=== PATIENT | male | born 1960 | race Caucasian/White ===

== ENCOUNTER 2018-03-26 17:36 | Emergency (ER) | payer BC ==
[2018-03-26] MEDS ORDERED: DILTIAZEM DRIP BOLUS FROM BAG 1 MG SOLN IV ONE (17:56)
[2018-03-26] MEDS ORDERED: SODIUM CHLORIDE 0.9% 1,000 ML IV STA ×2 (17:56)
[2018-03-26] MEDS ORDERED: DILTIAZEM 50 MG in SODIUM CHLORIDE 0.9% 40 ML IV STA (17:56)
--- NOTE | 2018-03-26 17:59 | ED ---
Arrhythmia/Palpitations HPI - General Chief Complaint: Arrhythmia/Palpitations Stated Complaint: Chest Pain Time Seen by Provider: 03/26/18 17:45 Source: patient, family Mode of arrival: ambulatory Limitations: no limitations - History of Present Illness Initial Comments: Patient is a 57-year-old male presenting for palpitations. The patient states that approximately one hour presentation, he started having palpitations. He did not have any chest pain or shortness of breath but admitted to some congestion. He states that he was diagnosed with atrial fibrillation about a year ago and it was secondary to low magnesium. At that point, he was put on sotalol and is having increase in the dosage. He also has been taking sotalol but has not had any complications with it. He denies any shortness of breath or abdominal pain or nausea/vomiting/diarrhea. - Related Data Allergies Allergy/AdvReac Type Severity Reaction Status Date / Time Iodinated Contrast- Oral and Allergy Rash/Hives Verified 03/26/18 20:13 IV Dye Review of Systems ROS Statement: Those systems with pertinent positive or pertinent negative responses have been documented in the HPI. Constitutional: Negative for chills, fatigue and fever. HENT: Negative for congestion. Respiratory: Negative for chest tightness, shortness of breath and wheezing. Negative for cough Cardiovascular: Negative for chest pain and positive for palpitations. Gastrointestinal: Negative for abdominal pain. Negative for abdominal distention , diarrhea, nausea and vomiting. Positive for bright red blood per rectum Genitourinary: Negative for dysuria. Musculoskeletal: Negative for back pain, neck pain and neck stiffness. Skin: Negative for color change. Neurological: Negative for dizziness, speech difficulty, weakness and light- headedness. Psychiatric/Behavioral: Negative for agitation and confusion. Negative for anxiety ROS Other: All systems not noted in ROS Statement are negative. Past Medical History Past Medical History: Atrial Fibrillation, Diabetes Mellitus, Hyperlipidemia, Hypertension, Myocardial Infarction ([place]) History of Any Multi-Drug Resistant Organisms: None Reported Past Surgical History: Heart Catheterization With Stent, Hernia Repair, Joint Replacement Past Psychological History: No Psychological Hx Reported Smoking Status: Never smoker Past Alcohol Use History: None Reported Past Drug Use History: None Reported General Exam - General Exam Comments Initial Comments: Constitutional: Pt is oriented to person, place, and time. Pt appears well- developed and well-nourished. No distress. HENT: Head: Normocephalic and atraumatic. Eyes: EOM are normal. Neck: Normal range of motion. Neck supple. Cardiovascular: Irregularly irregular rhythm, tachycardia present, S1 normal, S2 normal and normal heart sounds. Exam reveals no gallop and no friction rub. No murmur heard. Pulmonary/Chest: Effort normal and breath sounds normal. No tachypnea and no bradypnea. No respiratory distress. No wheezes or rales noted. Abdominal: Soft. Bowel sounds are normal. Pt exhibits no shifting dullness, no distension, no pulsatile liver, no fluid wave, no abdominal bruit and no ascites. There is no tenderness. There is no rigidity, no rebound, no guarding, no tenderness at McBurney's point and negative Storey's sign. Musculoskeletal: Normal range of motion. Neurological: Pt is alert and oriented to person, place, and time. No cranial nerve deficit. Skin: Skin is warm and dry. No rash noted. Pt is not diaphoretic. No erythema. No pallor. Psychiatric: Pt has a normal mood and affect. Pt behavior is normal. Thought content normal. Limitations: no limitations Course Vital Signs 03/26/18 03/26/18 03/26/18 17:38 18:20 18:25 Temperature 98.6 F Pulse Rate 156 H 88 Respiratory 18 18 Rate Blood Pressure 143/92 105/83 105/83 O2 Sat by Pulse 97 96 Oximetry 03/26/18 03/26/18 03/26/18 18:30 18:35 18:40 Temperature Pulse Rate 95 80 Respiratory 21 20 Rate Blood Pressure 105/83 125/76 125/76 O2 Sat by Pulse 96 96 Oximetry 03/26/18 03/26/18 03/26/18 18:45 18:50 18:55 Temperature Pulse Rate 85 80 87 Respiratory 19 9 L 18 Rate Blood Pressure 125/76 125/76 125/76 O2 Sat by Pulse 96 97 96 Oximetry 03/26/18 19:30 Temperature 98.1 F Pulse Rate 73 Respiratory 14 Rate Blood Pressure 126/73 O2 Sat by Pulse 96 Oximetry EKG Findings - EKG Comments: EKG Findings:: EKG shows atrial fibrillation fibrillation with RVR. QRS 86, QTC 469, there are no significant ST depressions or elevations. 19:19 - EKG shows normal sinus rhythm with a rate of 83 piece per minute, MD interval 168, QRS 90, QTC 444. R no significant ST depressions or elevations. Medical Decision Making - Medical Decision Making Lavatory studies showed that there was no significant nausea light derangements nor was there leukocytosis. Chest x-ray was also negative for emergent pathology. Upon arrival, the patient was in atrial fibrillation with RVR but then converted spontaneously to normal sinus rhythm and medications were not needed. Case is discussed with cardiology on-call and it was advised that he could be discharged with follow-up as an outpatient. Because the patient was hemodynamically stable and continued to remain in normal sinus rhythm per telemetry, it was thought that the patient can be safely discharged. Additionally, from a cardiac standpoint, troponin was not elevated.Explained all labs and diagnostic test results and that we will discharge the patient home and patient is to follow up with PCP in 1-2 days and return to the ED if symptoms worsen. Pt is agreeable to plan. - Lab Data Result diagrams: 03/26/18 17:54 03/26/18 17:54 Lab Results 03/26/18 03/26/18 03/26/18 Range/Units 17:54 17:54 17:54 WBC 9.4 (3.8-10.6) k/uL RBC 4.93 (4.30-5.90) m/uL Hgb 14.6 (13.0-17.5) gm/dL Hct 44.3 (39.0-53.0) % MCV 89.8 (80.0-100.0) fL MCH 29.6 (25.0-35.0) pg MCHC 33.0 (31.0-37.0) g/dL RDW 13.3 (11.5-15.5) % Plt Count 187 (150-450) k/uL Neutrophils % 72 % Lymphocytes % 15 % Monocytes % 10 % Eosinophils % 1 % Basophils % 0 % Neutrophils # 6.7 (1.3-7.7) k/uL Lymphocytes # 1.4 (1.0-4.8) k/uL Monocytes # 0.9 (0-1.0) k/uL Eosinophils # 0.1 (0-0.7) k/uL Basophils # 0.0 (0-0.2) k/uL PT 12.1 H (9.0-12.0) sec INR 1.2 H (<1.2) APTT 26.2 (22.0-30.0) sec Sodium 140 (137-145) mmol/L Potassium 4.3 (3.5-5.1) mmol/L Chloride 106 (98-107) mmol/L Carbon Dioxide 25 (22-30) mmol/L Anion Gap 9 mmol/L BUN 16 (9-20) mg/dL Creatinine 0.66 (0.66-1.25) mg/dL Est GFR (CKD-EPI)AfAm >90 (>60 ml/min/1.73 sqM) Est GFR (CKD-EPI)NonAf >90 (>60 ml/min/1.73 sqM) Glucose 262 H (74-99) mg/dL Calcium 9.9 (8.4-10.2) mg/dL Magnesium 1.7 (1.6-2.3) mg/dL Total Bilirubin 0.9 (0.2-1.3) mg/dL AST 30 (17-59) U/L ALT 36 (21-72) U/L Alkaline Phosphatase 42 (38-126) U/L Troponin I (0.000-0.034) ng/mL Total Protein 7.6 (6.3-8.2) g/dL Albumin 4.4 (3.5-5.0) g/dL TSH 0.949 (0.465-4.680) mIU/L 03/26/18 Range/Units 17:54 WBC (3.8-10.6) k/uL RBC (4.30-5.90) m/uL Hgb (13.0-17.5) gm/dL Hct (39.0-53.0) % MCV (80.0-100.0) fL MCH (25.0-35.0) pg MCHC (31.0-37.0) g/dL RDW (11.5-15.5) % Plt Count (150-450) k/uL Neutrophils % % Lymphocytes % % Monocytes % % Eosinophils % % Basophils % % Neutrophils # (1.3-7.7) k/uL Lymphocytes # (1.0-4.8) k/uL Monocytes # (0-1.0) k/uL Eosinophils # (0-0.7) k/uL Basophils # (0-0.2) k/uL PT (9.0-12.0) sec INR (<1.2) APTT (22.0-30.0) sec Sodium (137-145) mmol/L Potassium (3.5-5.1) mmol/L Chloride (98-107) mmol/L Carbon Dioxide (22-30) mmol/L Anion Gap mmol/L BUN (9-20) mg/dL Creatinine (0.66-1.25) mg/dL Est GFR (CKD-EPI)AfAm (>60 ml/min/1.73 sqM) Est GFR (CKD-EPI)NonAf (>60 ml/min/1.73 sqM) Glucose (74-99) mg/dL Calcium (8.4-10.2) mg/dL Magnesium (1.6-2.3) mg/dL Total Bilirubin (0.2-1.3) mg/dL AST (17-59) U/L ALT (21-72) U/L Alkaline Phosphatase (38-126) U/L Troponin I <0.012 (0.000-0.034) ng/mL Total Protein (6.3-8.2) g/dL Albumin (3.5-5.0) g/dL TSH (0.465-4.680) mIU/L Disposition Clinical Impression: Atrial fibrillation Disposition: HOME SELF-CARE Condition: Good Instructions: Heart Palpitations (ED) Is patient prescribed a controlled substance at d/c from ED?: No Referrals: Daniel Monae DO [Primary Care Provider] - 1-2 days Mora Davis MD [STAFF PHYSICIAN] - 1-2 days Time of Disposition: 19:57
[2018-03-26 18:14] LABS: Basophils % (A) 0 %; Eosinophils # (A) 0.1 k/uL (0-0.7); Eosinophils % (A) 1 %; HCT 44.3 % (39.0-53.0); HGB 14.6 gm/dL (13.0-17.5); Lymphocytes # (A) 1.4 k/uL (1.0-4.8); Lymphocytes % (A) 15 %; MCH 29.6 pg (25.0-35.0); MCV 89.8 fL (80.0-100.0); Mean Platelet Volume 8.1; Monocytes # (A) 0.9 k/uL (0-1.0); Monocytes % (A) 10 %; Neutrophils # (A) 6.7 k/uL (1.3-7.7); Neutrophils % (A) 72 %; Platelet Count 187 k/uL (150-450); RBC 4.93 m/uL (4.30-5.90); RDW 13.3 % (11.5-15.5); WBC 9.4 k/uL (3.8-10.6)
[2018-03-26 18:22] LABS: INR 1.2 (<1.2); Partial Thromboplastin Time 26.2 sec (22.0-30.0); Prothrombin Time 12.1 sec (9.0-12.0)
[2018-03-26 18:30] LABS: ALT 36 U/L (21-72); AST 30 U/L (17-59); Albumin 4.4 g/dL (3.5-5.0); Alkaline Phosphatase 42 U/L (38-126); Anion Gap 9 mmol/L; Blood Urea Nitrogen 16 mg/dL (9-20); Calcium 9.9 mg/dL (8.4-10.2); Carbon Dioxide 25 mmol/L (22-30); Chloride 106 mmol/L (98-107); Glucose 262 mg/dL (74-99); Magnesium 1.7 mg/dL (1.6-2.3); Potassium 4.3 mmol/L (3.5-5.1); Sodium 140 mmol/L (137-145); Total Bilirubin 0.9 mg/dL (0.2-1.3); Total Protein 7.6 g/dL (6.3-8.2)
--- NOTE | 2018-03-26 18:47 | XR ---
EXAMINATION TYPE: XR chest 2V DATE OF EXAM: 03/26/2018 COMPARISON: NONE HISTORY: Neck pain and jaw pain TECHNIQUE: Frontal and lateral views of the chest are obtained. FINDINGS: There is no focal air space opacity, pleural effusion, or pneumothorax seen. The cardiac silhouette size is within normal limits. The osseous structures are intact. IMPRESSION: No acute cardiopulmonary process.
[2018-03-26 19:56] VITALS: BP 126/73; PULSE 73; RESP 14; TEMP 98.1
== END 2018-03-26 20:02 | disposition home or self-care (01) ==
LOC: EC 17:36
DX: I48.91 Unspecified atrial fibrillation (principal); R09.89 Other specified symptoms and signs involving the circulatory and respiratory systems; R00.0 Tachycardia, unspecified; I25.2 Old myocardial infarction; Z91.041 Radiographic dye allergy status; Z95.5 Presence of coronary angioplasty implant and graft; Z79.899 Other long term (current) drug therapy
CPT/HCPCS: 36415; 71046; 80053; 83735; 84443; 84484; 85025; 85610; 85730; 93005; 96360; 96361; 99285

== ENCOUNTER 2018-07-04 12:21 | Inpatient (IN) | payer BC ==
[2018-07-04] MEDS ORDERED: LIDOCAINE 1% INJ 10MG/ML (20 ML MDV) SQ ONE (13:13)
--- NOTE | 2018-07-04 14:23 | ED ---
General Adult HPI - General Chief complaint: Skin/Abscess/Foreign Body Stated complaint: abscess on back Time Seen by Provider: 07/04/18 12:44 Source: patient Mode of arrival: ambulatory Limitations: no limitations - History of Present Illness Initial comments: Patient is a 57-year-old male presenting to the emergency department with an abscess on his right lower back. Patient states that he had it drained 4 years ago but the cyst remained until it flared up 3 days ago. He was placed on Bactrim by his primary care 3 days ago but has seen minimal improvement. Patient states the lesion has increased in size and now experiences referred flank pain. Patient denies fever, nausea vomiting or diarrhea. Patient reports exudate stains on his clothing but no discharge when squeezing it. Patient reports taking Tylenol for pain. - Related Data Home Medications Medication Instructions Recorded Confirmed Aspirin EC [Ecotrin Low Dose] 81 mg PO DAILY 03/26/18 07/04/18 Atorvastatin [Lipitor] 40 mg PO DAILY 03/26/18 07/04/18 Cholecalciferol [Vitamin D3] 5,000 unit PO BID 03/26/18 07/04/18 INSULIN LISPRO (HumaLOG) [HumaLOG] 10 units SQ AC-TID 03/26/18 07/04/18 Insulin Glargine,Hum.rec.anlog 10 units SQ DAILY 03/26/18 07/04/18 [[place] Solostar] Insulin Glargine,Hum.rec.anlog 20 units SQ HS 03/26/18 07/04/18 [[place] Solostar] Liraglutide [Victoza 2-Derrick] 1.2 mg SQ DAILY 03/26/18 07/04/18 Lisinopril [Zestril] 5 mg PO DAILY 03/26/18 07/04/18 [place]-3 Fatty Acids [[place]-3] 1,000 mg PO DAILY 03/26/18 07/04/18 Rivaroxaban [Xarelto] 20 mg PO DAILY 03/26/18 07/04/18 Sotalol [Betapace] 120 mg PO BID 03/26/18 07/04/18 metFORMIN HCL [Glucophage] 1,000 mg PO BID 03/26/18 07/04/18 Potassium Chloride ER [K-Dur 10] 10 meq PO DAILY 07/04/18 07/04/18 Sulfamethox-Tmp 800-160Mg [Bactrim 1 tab PO Q12HR 07/04/18 07/04/18 DS 800-160 mg] Tiotropium 18 Mcg/Puff [Spiriva] 1 puff INHALATION RT-DAILY 07/04/18 07/04/18 Allergies Allergy/AdvReac Type Severity Reaction Status Date / Time Iodinated Contrast- Oral and Allergy Rash/Hives Verified 07/04/18 13:13 IV Dye Review of Systems ROS Statement: Those systems with pertinent positive or pertinent negative responses have been documented in the HPI. ROS Other: All systems not noted in ROS Statement are negative. Past Medical History Past Medical History: Atrial Fibrillation, Coronary Artery Disease (CAD), Diabetes Mellitus, Hyperlipidemia, Hypertension, Myocardial Infarction ([place]) History of Any Multi-Drug Resistant Organisms: None Reported Past Surgical History: Heart Catheterization With Stent, Hernia Repair, Joint Replacement Past Psychological History: No Psychological Hx Reported Smoking Status: Never smoker Past Alcohol Use History: None Reported Past Drug Use History: None Reported General Exam Limitations: no limitations General appearance: alert, in no apparent distress Head exam: Present: atraumatic GI/Abdominal exam: Present: soft. Absent: distended Back exam: Present: full ROM, rash noted (Abscess of right lower back). Absent: CVA tenderness (R), CVA tenderness (L), muscle spasm Neurological exam: Present: alert, oriented X3 Psychiatric exam: Present: normal affect, normal mood Skin exam: Present: warm Expanded Type of lesion: Present: abscess (Right lower back. 6 cm diameter of induration. 3 cm diameter fluctuation) Distribution of rash: back (Right lower back) Description of rash: Present: size (6 cm diameter of induration and 3 cm diameter of fluctuation), tenderness, erythematous, swelling, fluctuant, indurated Course Vital Signs 07/04/18 12:39 Temperature 98.7 F Pulse Rate 86 Respiratory 18 Rate Blood Pressure 122/75 O2 Sat by Pulse 97 Oximetry Medical Decision Making - Medical Decision Making Patient is a 57-year-old diabetic presents to the emergency department for an abscess in the right lower back. The 5 mm incision was made in an attempt to drain exudates. No exudates were removed. An 18-gauge needle was inserted an attempt to draw any fluid out but none was removed. Patient had a CT without contrast on the site of the abscess. CBC, CMP and lactate were ordered. Patient was administered 1 dose of Rocephin and was placed in an ankle drip. Gen. surgery was consulted. The patient will be admitted today. Case discussed with physician. - Lab Data Result diagrams: 07/04/18 16:39 07/04/18 16:39 Lab Results 07/04/18 07/04/18 Range/Units 16:39 16:39 WBC 12.8 H (3.8-10.6) k/uL RBC 4.62 (4.30-5.90) m/uL Hgb 13.7 (13.0-17.5) gm/dL Hct 41.1 (39.0-53.0) % MCV 89.1 (80.0-100.0) fL MCH 29.8 (25.0-35.0) pg MCHC 33.4 (31.0-37.0) g/dL RDW 13.7 (11.5-15.5) % Plt Count 206 (150-450) k/uL Neutrophils % 80 % Lymphocytes % 9 % Monocytes % 8 % Eosinophils % 2 % Basophils % 0 % Neutrophils # 10.3 H (1.3-7.7) k/uL Lymphocytes # 1.1 (1.0-4.8) k/uL Monocytes # 1.1 H (0-1.0) k/uL Eosinophils # 0.2 (0-0.7) k/uL Basophils # 0.0 (0-0.2) k/uL Poikilocytosis Slight Sodium 138 (137-145) mmol/L Potassium 4.1 (3.5-5.1) mmol/L Chloride 104 (98-107) mmol/L Carbon Dioxide 23 (22-30) mmol/L Anion Gap 11 mmol/L BUN 12 (9-20) mg/dL Creatinine 0.60 L (0.66-1.25) mg/dL Est GFR (CKD-EPI)AfAm >90 (>60 ml/min/1.73 sqM) Est GFR (CKD-EPI)NonAf >90 (>60 ml/min/1.73 sqM) Glucose 218 H (74-99) mg/dL Calcium 9.5 (8.4-10.2) mg/dL Total Bilirubin 0.6 (0.2-1.3) mg/dL AST 13 L (17-59) U/L ALT 21 (21-72) U/L Alkaline Phosphatase 51 (38-126) U/L Total Protein 6.8 (6.3-8.2) g/dL Albumin 4.0 (3.5-5.0) g/dL Disposition Clinical Impression: Abscess Disposition: ADMITTED IP TO THIS [facility] Condition: Stable Referrals: Nonstaff,Physician [REFERRING] - 1-2 days Time of Disposition: 17:08 Decision Time: 17:08
[2018-07-04] MEDS ORDERED: cefTRIAXone IN SWFI 1,000 MG/10 ML SYRINGE IVP STA (16:03)
--- NOTE | 2018-07-04 16:37 | CT ---
EXAMINATION TYPE: CT abdomen wo con DATE OF EXAM: 07/04/2018 COMPARISON: None HISTORY: Right mid back swelling and redness. Abscess. CT DLP: 1280 mGycm Automated exposure control for dose reduction was used. TECHNIQUE: Helical acquisition of images was performed from the lung bases through the top of iliac crest to include entire abdomen. CONTRAST: Performed without Oral Contrast and without IV contrast. FINDINGS: LUNG BASES: Right hemidiaphragm elevation is seen. Slight rightward mediastinal shift may be secondar y to atelectasis as there is right basilar atelectasis noted. Right basilar granuloma is present. Lef t basilar airspace disease is partially visualized and may represent atelectasis. LIVER/GB: Diastases recti creates contra abnormality of the liver with focal outpouching anteriorly. Unenhanced liver demonstrates no appreciable mass. No cholelithiasis. PANCREAS: No significant abnormality is seen. SPLEEN: Benign parenchymal granulomas are scattered throughout. ADRENALS: No significant abnormality is seen. KIDNEYS: Minimal nonspecific perinephric fat stranding is seen. No hydronephrosis nor nephrolithiasis . BOWEL: Moderate degree fecal stasis. No dilated large or small bowel. LYMPH NODES: No greater than 1 cm short axis lymph node in the abdomen. OSSEOUS STRUCTURES: Mild degenerative change of the spine. FREE AIR: No free air is visualized. OTHER: There is a subcutaneous abscess seen at the level of T11-T12 measuring 5.3 x 4.5 x 6.2 cm in t ransverse by anterior posterior by craniocaudal dimension. This contains foci of loculated air, a thi n rim, and demonstrates surrounding fat stranding. Subcutaneous emphysema is also seen deep to the sk in surface along the right posterior superficial subcutaneous tissues. The skin demonstrates skin thi ckening overlying the site during 4 mm. This abscess is just deep to the skin surface. Phlegmonous ch anges about the T12 spinous process however this does not appear to currently invade the paraspinal m usculature. IMPRESSION: 1. RIGHT PARACENTRAL SUBCUTANEOUS ABSCESS AT T11-T12 MEASURING 5.3 X 4.5 X 6.2 CM SEEN JUST DEEP TO T HE THICKENED SKIN SURFACE ABUTTING THE TRANSVERSE PROCESS OF T12 WITHOUT APPARENT INVASION INTO THE P ARASPINAL MUSCLES AT THIS TIME NOR CURRENT OSSEOUS EROSION. 2. BIBASILAR AIRSPACE DISEASE FAVORED TO REPRESENT ATELECTASIS ALTHOUGH DEVELOPING PNEUMONIA IS POSSI BLE IN THE APPROPRIATE CLINICAL SETTING.
[2018-07-04 16:51] LABS: Basophils % (A) 0 %; Eosinophils # (A) 0.2 k/uL (0-0.7); Eosinophils % (A) 2 %; HCT 41.1 % (39.0-53.0); HGB 13.7 gm/dL (13.0-17.5); Lymphocytes # (A) 1.1 k/uL (1.0-4.8); Lymphocytes % (A) 9 %; MCH 29.8 pg (25.0-35.0); MCHC 33.4 g/dL (31.0-37.0); MCV 89.1 fL (80.0-100.0); Mean Platelet Volume 8.5; Monocytes # (A) 1.1 k/uL (0-1.0); Monocytes % (A) 8 %; Neutrophils # (A) 10.3 k/uL (1.3-7.7); Neutrophils % (A) 80 %; Platelet Count 206 k/uL (150-450); Poikilocytosis Slight; RBC 4.62 m/uL (4.30-5.90); RDW 13.7 % (11.5-15.5); WBC 12.8 k/uL (3.8-10.6)
[2018-07-04] MEDS ORDERED: ONDANSETRON 4 MG/2 ML VIAL IVP PRN (16:57)
[2018-07-04] MEDS ORDERED: ONDANSETRON 4 MG/2 ML VIAL IVP STA (16:57)
[2018-07-04] MEDS ORDERED: NALOXONE 0.4 MG/ML 1 ML VIAL IV PRN (16:57)
[2018-07-04] MEDS ORDERED: VANCOMYCIN IV PER PHARMACY 1 EACH MISC MISCELLANE PRN (16:57)
[2018-07-04 17:01] LABS: ALT 21 U/L (21-72); AST 13 U/L (17-59); Alkaline Phosphatase 51 U/L (38-126); Anion Gap 11 mmol/L; Blood Urea Nitrogen 12 mg/dL (9-20); Calcium 9.5 mg/dL (8.4-10.2); Carbon Dioxide 23 mmol/L (22-30); Chloride 104 mmol/L (98-107); Glucose 218 mg/dL (74-99); Potassium 4.1 mmol/L (3.5-5.1); Sodium 138 mmol/L (137-145); Total Bilirubin 0.6 mg/dL (0.2-1.3); Total Protein 6.8 g/dL (6.3-8.2)
[2018-07-04] MEDS ORDERED: VANCOMYCIN 2,000 MG in SODIUM CHLORIDE 0.9% 500 ML 500 ML IVPB STA (17:01)
[2018-07-04 18:23] LABS: Glucose,Whole Blood 194 mg/dL (75-99)
[2018-07-04] MEDS: HYDROcodone/APAP 5-325MG 1 EACH TAB PO PRN ×2 (18:25→23:46)
[2018-07-04 19:05] VITALS: BMI 40.4
--- NOTE | 2018-07-04 19:52 | P.HPIM ---
History of Present Illness H&P Date: 07/04/18 Chief Complaint: infected abscess not getting better The patient is a 57-year-old obese male with a past medical history of type 2 diabetes, currently artery disease with stenting 2, essential hypertension, dyslipidemia and paroxysmal A. fib currently on anticoagulation with Xarelto who presents to the ER with chief complaint of back abscess it's not getting better. Apparently the patient reports previously having a cyst on his mid back that about 9-10 days ago began getting more and more swollen and erythematous and more painful. The patient reports a 9-10 constant sharp pain in that area, he reports subjective fevers chills and night sweats during this time. Patient sought treatment from his primary care provider and was placed on Bactrim this past , since then the patient denies any improvement Of the abscess, he denies any pus when he attempts to express the abscess. The patient denies any other complaints of chest pain shortness of breath nausea vomiting or abdominal pain. In the ER the patient had a comprehensive workup, CT abdomen suggested a right paracentral subcutaneous abscess at T 11/12 measuring approximately 5.34.56.2 cm. The patient was noted to have a low-grade temperature 100.0, he was normotensive. Notable labs include a WBC count of 12.8, with a serum blood sugar of 218. The patient was started on vancomycin and Rocephin recommended for admission. Review of Systems Pertinent positives per HPI all systems otherwise negative Past Medical History Past Medical History: Atrial Fibrillation, Coronary Artery Disease (CAD), Diabetes Mellitus, Hyperlipidemia, Hypertension, Myocardial Infarction ([place]) Last Myocardial Infarction Date:: unknown History of Any Multi-Drug Resistant Organisms: None Reported Past Surgical History: Heart Catheterization With Stent, Hernia Repair, Joint Replacement Past Anesthesia/Blood Transfusion Reactions: Previous Problems w/ Anesthesia Additional Past Anesthesia/Blood Transfusion Reaction / Comment(s): reports he has a hard time becoming reoriented and alert Date of Last Stent Placement:: unknown Past Psychological History: No Psychological Hx Reported Smoking Status: Never smoker Past Alcohol Use History: None Reported Past Drug Use History: None Reported Medications and Allergies Home Medications Medication Instructions Recorded Confirmed Type Aspirin EC [Ecotrin Low Dose] 81 mg PO DAILY 03/26/18 07/04/18 History Atorvastatin [Lipitor] 40 mg PO DAILY 03/26/18 07/04/18 History Cholecalciferol [Vitamin D3] 5,000 unit PO BID 03/26/18 07/04/18 History INSULIN LISPRO (HumaLOG) [HumaLOG] 10 units SQ AC-TID 03/26/18 07/04/18 History Insulin Glargine,Hum.rec.anlog 10 units SQ DAILY 03/26/18 07/04/18 History [[place] Solostar] Insulin Glargine,Hum.rec.anlog 20 units SQ HS 03/26/18 07/04/18 History [T[place]jeo Solostar] Liraglutide [Victoza 2-Derrick] 1.2 mg SQ DAILY 03/26/18 07/04/18 History Lisinopril [Zestril] 5 mg PO DAILY 03/26/18 07/04/18 History [place]-3 Fatty Acids [[place]-3] 1,000 mg PO DAILY 03/26/18 07/04/18 History Rivaroxaban [Xarelto] 20 mg PO DAILY 03/26/18 07/04/18 History Sotalol [Betapace] 120 mg PO BID 03/26/18 07/04/18 History metFORMIN HCL [Glucophage] 1,000 mg PO BID 03/26/18 07/04/18 History Potassium Chloride ER [K-Dur 10] 10 meq PO DAILY 07/04/18 07/04/18 History Sulfamethox-Tmp 800-160Mg [Bactrim 1 tab PO Q12HR 07/04/18 07/04/18 History DS 800-160 mg] Tiotropium 18 Mcg/Puff [Spiriva] 1 puff INHALATION RT-DAILY 07/04/18 07/04/18 History Allergies Allergy/AdvReac Type Severity Reaction Status Date / Time Iodinated Contrast- Oral and Allergy Rash/Hives Verified 07/04/18 13:13 IV Dye Physical Exam Vitals: Vital Signs Temp Pulse Pulse Resp BP BP Pulse Ox 07/04/18 18:20 99.8 F H 88 18 123/61 93 L 07/04/18 18:00 100.0 F H 87 19 126/61 93 L 07/04/18 12:39 98.7 F 86 18 122/75 97 Intake and Output 07/04/18 07/04/18 07/04/18 06:59 14:59 22:59 Other: Weight 127.958 kg Constitutional: No acute distress, conversant, pleasant Eyes: Anicteric sclerae, moist conjunctiva, no lid-lag, PERRLA ENMT: NC/AT,Oropharynx clear, no erythema, exudates Neck:Supple, FROM, no masses, or JVD, No carotid bruits; No thyromegaly Lungs: Clear to auscultation, Clear to percussion, Normal respiratory effort, no accessory muscle use Cardiovascular: Heart regular in rate and rhythm, No murmurs, gallops, or rubs no peripheral edema Abdominal: Soft Nontender, nom distended, no guarding, no rebound or rigidity, Normoactive bowel sounds No hepatomegaly, No splenomegaly, No palpable mass No abdominal wall hernia noted Skin: Tennis ball sized area of erythema and induration at the level of T11 to T12 Extremities:No digital cyanosis No clubbing, Pedal pulses intact and symmetrical Radial pulses intact and symmetrical Normal gait and station, No calf tenderness Psychiatric: Alert and oriented to person, place and time, Appropriate affect Intact judgement Neuro: Muscles Strength 5/5 in all 4 extremities, Sensation to light touch grossly present throughout, Cranial nerves II-XII grossly intact. No focal sensory deficits Results CBC & Chem 7: 07/04/18 16:39 07/04/18 16:39 Labs: Abnormal Lab Results - Last 24 Hours (Table) 07/04/18 07/04/18 07/04/18 Range/Units 16:39 16:39 18:18 WBC 12.8 H (3.8-10.6) k/uL Neutrophils # 10.3 H (1.3-7.7) k/uL Monocytes # 1.1 H (0-1.0) k/uL Creatinine 0.60 L (0.66-1.25) mg/dL Glucose 218 H (74-99) mg/dL POC Glucose (mg/dL) 194 H (75-99) mg/dL AST 13 L (17-59) U/L Thrombosis Risk Factor Assmnt - Choose All That Apply Any of the Below Risk Factors Present?: No Assessment and Plan (1) Back abscess Current Visit: Yes Status: Acute Code(s): L02.212 - CUTANEOUS ABSCESS OF BACK [ANY PART, EXCEPT BUTTOCK] SNOMED Code(s): 434092414 (2) Sepsis Current Visit: Yes Status: Acute Code(s): A41.9 - SEPSIS, UNSPECIFIED ORGANISM SNOMED Code(s): 99530744 (3) Type 2 diabetes mellitus with hyperglycemia Current Visit: Yes Status: Acute Code(s): E11.65 - TYPE 2 DIABETES MELLITUS WITH HYPERGLYCEMIA SNOMED Code(s): 199946388816168 (4) Presence of stent in coronary artery in patient with coronary artery disease Current Visit: Yes Status: Acute Code(s): I25.10 - ATHSCL HEART DISEASE OF [place] CORONARY ARTERY W/O ANG PCTRS; Z95.5 - PRESENCE OF CORONARY ANGIOPLASTY IMPLANT AND GRAFT SNOMED Code(s): 110119135 (5) Essential hypertension Current Visit: Yes Status: Acute Code(s): I10 - ESSENTIAL (PRIMARY) HYPERTENSION SNOMED Code(s): 04847991 Plan: The patient is admitted anticipate a greater than 2 midnight stay with mild sepsis secondary to Back abscess after failing outpatient therapy with Bactrim, the patient is hemodynamically stable has a mild leukocytosis of 12.8, the patient will need consultation to Gen. surgery for I&D after having minimal drainage after I&D was attempted in the ER. We'll continue empiric IV antibiotics with vancomycin and Zosyn. We'll resume all patient's antihypertensive and diabetic medications. We'll continue to follow his c linical course Discussed plan of care with: Patient and his Prophylaxis: On anticoagulation with Xarelto CODE STATUS; full code Time with Patient: Greater than 30
[2018-07-04 20:25] LABS: Glucose,Whole Blood 326 mg/dL (75-99)
[2018-07-04] MEDS ORDERED: INSULIN ASPART (NovoLOG) 100 UNIT/ML VIAL SQ ONE (20:37)
[2018-07-04] MEDS: INSULIN ASPART (NovoLOG) 100 UNIT/ML VIAL SQ SCH (21:01)
[2018-07-04] MEDS: SOTALOL 120 MG TAB PO SCH (21:01)
[2018-07-04] MEDS: INSULIN DETEMIR (LEVEMIR) 100 UNIT/ML SYR SQ SCH (21:01)
[2018-07-04] MEDS: CHOLECALCIFEROL 1,000 UNIT TAB PO SCH (21:01)
[2018-07-04] MEDS: VANCOMYCIN 2,000 MG in SODIUM CHLORIDE 0.9% 500 ML 500 ML IVPB SCH (23:06)
[2018-07-04] MEDS: PIPERACILLIN-TAZOBACTAM 3.375 GM in SODIUM CHLORIDE 0.9% 100 ML IVPB SCH (23:08)
[2018-07-05] MEDS: HYDROcodone/APAP 5-325MG 1 EACH TAB PO PRN ×5 (04:21→23:59)
[2018-07-05 07:07] LABS: Glucose,Whole Blood 203 mg/dL (75-99)
[2018-07-05] MEDS: PIPERACILLIN-TAZOBACTAM 3.375 GM in SODIUM CHLORIDE 0.9% 100 ML IVPB SCH ×3 (07:18→23:13)
[2018-07-05] MEDS: ATORVASTATIN 40 MG TAB PO SCH (07:20)
[2018-07-05] MEDS: CHOLECALCIFEROL 1,000 UNIT TAB PO SCH ×2 (07:20→19:57)
[2018-07-05] MEDS: ASPIRIN 81 MG PO SCH (07:21)
[2018-07-05] MEDS: LISINOPRIL 5 MG TAB PO SCH (07:21)
[2018-07-05] MEDS: POTASSIUM CHLORIDE ER 10 MEQ TAB.ER.PRT PO SCH (07:21)
[2018-07-05] MEDS: Liraglutide [Victoza 2-Pak] 1.2 MG SQ SCH (07:21)
[2018-07-05] MEDS: SOTALOL 120 MG TAB PO SCH ×2 (07:30→19:57)
[2018-07-05] MEDS: INSULIN ASPART (NovoLOG) 100 UNIT/ML VIAL SQ SCH ×7 (07:31→20:38)
[2018-07-05] MEDS: VANCOMYCIN 2,000 MG in SODIUM CHLORIDE 0.9% 500 ML 500 ML IVPB SCH ×3 (07:33→23:13)
[2018-07-05] MEDS: OMEGA PO SCH (07:53)
[2018-07-05] MEDS: FATTY ACIDS PO SCH (07:53)
[2018-07-05] MEDS: IPRATROPIUM 0.5 MG/2.5 ML NEBU INHALATION SCH ×3 (08:21→19:38)
[2018-07-05] MEDS ORDERED: RIVAROXABAN 20 MG TAB PO SCH (09:00)
[2018-07-05 09:13] LABS: Basophils % (A) 0 %; Eosinophils # (A) 0.1 k/uL (0-0.7); Eosinophils % (A) 1 %; HCT 38.7 % (39.0-53.0); HGB 12.9 gm/dL (13.0-17.5); Lymphocytes % (A) 9 %; MCH 29.7 pg (25.0-35.0); MCHC 33.2 g/dL (31.0-37.0); MCV 89.6 fL (80.0-100.0); Mean Platelet Volume 8.7; Monocytes % (A) 10 %; Neutrophils # (A) 8.4 k/uL (1.3-7.7); Neutrophils % (A) 78 %; Platelet Count 191 k/uL (150-450); Poikilocytosis Slight; RBC 4.32 m/uL (4.30-5.90); RDW 13.4 % (11.5-15.5); WBC 10.7 k/uL (3.8-10.6)
[2018-07-05 09:16] LABS: ALT 27 U/L (21-72); AST 12 U/L (17-59); Albumin 3.6 g/dL (3.5-5.0); Alkaline Phosphatase 45 U/L (38-126); Anion Gap 7 mmol/L; Blood Urea Nitrogen 10 mg/dL (9-20); Calcium 8.8 mg/dL (8.4-10.2); Carbon Dioxide 28 mmol/L (22-30); Chloride 104 mmol/L (98-107); Glucose 211 mg/dL (74-99); Potassium 4.4 mmol/L (3.5-5.1); Sodium 139 mmol/L (137-145); Total Bilirubin 0.6 mg/dL (0.2-1.3); Total Protein 6.3 g/dL (6.3-8.2)
[2018-07-05 10:04] LABS: Glucose,Whole Blood 210 mg/dL (75-99)
[2018-07-05] MEDS: INSULIN DETEMIR (LEVEMIR) 100 UNIT/ML SYR SQ SCH ×2 (10:28→20:38)
[2018-07-05] MEDS: ACETAMINOPHEN TAB 325 MG TAB PO PRN ×3 (10:28→23:13)
--- NOTE | 2018-07-05 11:34 | P.GSCN ---
<Deanna Patton - Last Filed: 07/05/18 11:33> History of Present Illness Consult date: 07/05/18 Reason for Consult: Abscess Requesting physician: Anthony Stone History of present illness: CHIEF COMPLAINT: Abscess HISTORY OF PRESENT ILLNESS: 57-year-old male presents to emergency ro om with a chief complaint of an abscess on his back. Patient reports he had an abscess in this area approximately 4 years ago. He reports about 8 days ago he noticed increased pain and swelling to the area. He reports his has been able to squeeze some pus out of it last week. He has not noticed a large amount of drainage at home recently. He was evaluated by his PCP outpatient and placed on Bactrim with little improvement. WBC 12.8 on admission. I&D was attempted in ER but no fluid was drained. PAST MEDICAL HISTORY: See list. PAST SURGICAL HISTORY: See list. SOCIAL HISTORY: No illicit drug use. REVIEW OF SYSTEMS: CONSTITUTIONAL: Denies fever or chills. HEENT: Denies blurred vision, vision changes, or eye pain. Denies hemoptysis CARDIOVASCULAR: Denies chest pain or pressure. RESPIRATORY: No shortness of breath. GASTROINTESTINAL: Refer to HPI for pertinent findings HEMATOLOGIC: Denies bleeding disorders. GENITOURINARY: Denies any blood in urine. SKIN: Reports abscess to back. Denies pruitis. Denies rash. PHYSICAL EXAM: VITAL SIGNS: Reviewed. GENERAL: Well-developed in no acute distress. HEENT: No sclera icterus. Extraocular movements grossly intact. Moist buccal mucosa. Head is atraumatic, normocephalic. ABDOMEN: Soft. Nondistended. Nontender. NEUROLOGIC: Alert and oriented. Cranial nerves II through XII grossly intact. SKIN: Abscess to mid-low back with surrounding erythema measuring approximately 6cm. Tenderness present. Small pinpoint area of purulent drainage. IMAGING: CT abdomen: Right paracentral subcutaneous abscess at T11-T12 measuring 5.34.56.2 cm seen just deep to the thickened skin tissue abutting the transverse process of T12 without apparent invasion into the paraspinal muscles ASSESSMENT: 1. Back abscess PLAN: 1. Consistent carb diet today. NPO after midnight, 2. Continue to hold Xarelto. Last dose 07/04/2018. Begin subcu heparin. 3. Patient tentatively scheduled for I&D of abscess tomorrow with Dr. Lagos 4. Infectious disease on consult. Appreciate recommendations Nurse practitioner note has been reviewed by physician. Signing provider agrees with the documented findings, assessment, and plan of care. Past Medical History Past Medical History: Atrial Fibrillation, Coronary Artery Disease (CAD), Diabetes Mellitus, Hyperlipidemia, Hypertension, Myocardial Infarction (MD) Last Myocardial Infarction Date:: unknown History of Any Multi-Drug Resistant Organisms: None Reported Past Surgical History: Heart Catheterization With Stent, Hernia Repair, Joint Replacement Past Anesthesia/Blood Transfusion Reactions: Previous Problems w/ Anesthesia Additional Past Anesthesia/Blood Transfusion Reaction / Comm: reports he has a hard time becoming reoriented and alert Date of Last Stent Placement:: unknown Past Psychological History: No Psychological Hx Reported Smoking Status: Never smoker Past Alcohol Use History: None Reported Past Drug Use History: None Reported Medications and Allergies Home Medications Medication Instructions Recorded Confirmed Type Aspirin EC [Ecotrin Low Dose] 81 mg PO DAILY 03/26/18 07/04/18 History Atorvastatin [Lipitor] 40 mg PO DAILY 03/26/18 07/04/18 History Cholecalciferol [Vitamin D3] 5,000 unit PO BID 03/26/18 07/04/18 History INSULIN LISPRO (HumaLOG) [HumaLOG] 10 units SQ AC-TID 03/26/18 07/04/18 History Insulin Glargine,Hum.rec.anlog 10 units SQ DAILY 03/26/18 07/04/18 History [Toujeo Solostar] Insulin Glargine,Hum.rec.anlog 20 units SQ HS 03/26/18 07/04/18 History [Toujeo Solostar] Liraglutide [Victoza 2-Derrick] 1.2 mg SQ DAILY 03/26/18 07/04/18 History Lisinopril [Zestril] 5 mg PO DAILY 03/26/18 07/04/18 History [place]-3 Fatty Acids [[place]-3] 1,000 mg PO DAILY 03/26/18 07/04/18 History Rivaroxaban [Xarelto] 20 mg PO DAILY 03/26/18 07/04/18 History Sotalol [Betapace] 120 mg PO BID 03/26/18 07/04/18 History metFORMIN HCL [Glucophage] 1,000 mg PO BID 03/26/18 07/04/18 History Potassium Chloride ER [K-Dur 10] 10 meq PO DAILY 07/04/18 07/04/18 History Sulfamethox-Tmp 800-160Mg [Bactrim 1 tab PO Q12HR 07/04/18 07/04/18 History DS 800-160 mg] Tiotropium 18 Mcg/Puff [Spiriva] 1 puff INHALATION RT-DAILY 07/04/18 07/04/18 History Allergies Allergy/AdvReac Type Severity Reaction Status Date / Time Iodinated Contrast- Oral and Allergy Rash/Hives Verified 07/04/18 13:13 IV Dye Surgical - Exam Vital Signs Temp Pulse Resp BP Pulse Ox 98.7 F 86 18 122/75 97 07/04/18 12:39 07/04/18 12:39 07/04/18 12:39 07/04/18 12:39 07/04/18 12:39 Results - Labs 07/05/18 08:37 07/05/18 08:37 Abnormal Lab Results - Last 24 Hours (Table) 07/04/18 07/04/18 07/04/18 Range/Units 16:39 16:39 18:18 WBC 12.8 H (3.8-10.6) k/uL Hgb (13.0-17.5) gm/dL Hct (39.0-53.0) % Neutrophils # 10.3 H (1.3-7.7) k/uL Monocytes # 1.1 H (0-1.0) k/uL Creatinine 0.60 L (0.66-1.25) mg/dL Glucose 218 H (74-99) mg/dL POC Glucose (mg/dL) 194 H (75-99) mg/dL AST 13 L (17-59) U/L 07/04/18 07/05/18 07/05/18 Range/Units 20:22 07:05 08:37 WBC (3.8-10.6) k/uL Hgb (13.0-17.5) gm/dL Hct (39.0-53.0) % Neutrophils # (1.3-7.7) k/uL Monocytes # (0-1.0) k/uL Creatinine 0.55 L (0.66-1.25) mg/dL Glucose 211 H (74-99) mg/dL POC Glucose (mg/dL) 326 H 203 H (75-99) mg/dL AST 12 L (17-59) U/L 07/05/18 07/05/18 Range/Units 08:37 10:02 WBC 10.7 H (3.8-10.6) k/uL Hgb 12.9 L (13.0-17.5) gm/dL Hct 38.7 L (39.0-53.0) % Neutrophils # 8.4 H (1.3-7.7) k/uL Monocytes # (0-1.0) k/uL Creatinine (0.66-1.25) mg/dL Glucose (74-99) mg/dL POC Glucose (mg/dL) 210 H (75-99) mg/dL AST (17-59) U/L Diabetes panel 07/04/18 07/05/18 Range/Units 16:39 08:37 Sodium 138 139 (137-145) mmol/L Potassium 4.1 4.4 (3.5-5.1) mmol/L Chloride 104 104 (98-107) mmol/L Carbon Dioxide 23 28 (22-30) mmol/L BUN 12 10 (9-20) mg/dL Creatinine 0.60 L 0.55 L (0.66-1.25) mg/dL Glucose 218 H 211 H (74-99) mg/dL Calcium 9.5 8.8 (8.4-10.2) mg/dL AST 13 L 12 L (17-59) U/L ALT 21 27 (21-72) U/L Alkaline Phosphatase 51 45 (38-126) U/L Total Protein 6.8 6.3 (6.3-8.2) g/dL Albumin 4.0 3.6 (3.5-5.0) g/dL Calcium panel 07/04/18 07/05/18 Range/Units 16:39 08:37 Calcium 9.5 8.8 (8.4-10.2) mg/dL Albumin 4.0 3.6 (3.5-5.0) g/dL Pituitary panel 07/04/18 07/05/18 Range/Units 16:39 08:37 Sodium 138 139 (137-145) mmol/L Potassium 4.1 4.4 (3.5-5.1) mmol/L Chloride 104 104 (98-107) mmol/L Carbon Dioxide 23 28 (22-30) mmol/L BUN 12 10 (9-20) mg/dL Creatinine 0.60 L 0.55 L (0.66-1.25) mg/dL Glucose 218 H 211 H (74-99) mg/dL Calcium 9.5 8.8 (8.4-10.2) mg/dL Adrenal panel 07/04/18 07/05/18 Range/Units 16:39 08:37 Sodium 138 139 (137-145) mmol/L Potassium 4.1 4.4 (3.5-5.1) mmol/L Chloride 104 104 (98-107) mmol/L Carbon Dioxide 23 28 (22-30) mmol/L BUN 12 10 (9-20) mg/dL Creatinine 0.60 L 0.55 L (0.66-1.25) mg/dL Glucose 218 H 211 H (74-99) mg/dL Calcium 9.5 8.8 (8.4-10.2) mg/dL Total Bilirubin 0.6 0.6 (0.2-1.3) mg/dL AST 13 L 12 L (17-59) U/L ALT 21 27 (21-72) U/L Alkaline Phosphatase 51 45 (38-126) U/L Total Protein 6.8 6.3 (6.3-8.2) g/dL Albumin 4.0 3.6 (3.5-5.0) g/dL <Isaac Lagos - Last Filed: 07/06/18 13:10> Surgical - Exam Vital Signs Temp Pulse Resp BP Pulse Ox 98.7 F 86 18 122/75 97 07/04/18 12:39 07/04/18 12:39 07/04/18 12:39 07/04/18 12:39 07/04/18 12:39 Results - Labs 07/05/18 08:37 07/06/18 09:16 Abnormal Lab Results - Last 24 Hours (Table) 07/05/18 07/05/18 07/06/18 Range/Units 17:11 20:31 07:22 Sodium (137-145) mmol/L Creatinine (0.66-1.25) mg/dL Glucose (74-99) mg/dL POC Glucose (mg/dL) 273 H 261 H 201 H (75-99) mg/dL 07/06/18 07/06/18 Range/Units 09:16 11:34 Sodium 136 L (137-145) mmol/L Creatinine 0.54 L (0.66-1.25) mg/dL Glucose 208 H (74-99) mg/dL POC Glucose (mg/dL) 187 H (75-99) mg/dL Microbiology - Last 24 Hours (Table) 07/05/18 10:00 Gram Stain - Preliminary Back Wound Culture - Preliminary 07/05/18 10:00 Anaerobic Culture - Preliminary Back Diabetes panel 07/06/18 Range/Units 09:16 Sodium 136 L (137-145) mmol/L Potassium 4.3 (3.5-5.1) mmol/L Chloride 103 (98-107) mmol/L Carbon Dioxide 27 (22-30) mmol/L BUN 10 (9-20) mg/dL Creatinine 0.54 L (0.66-1.25) mg/dL Glucose 208 H (74-99) mg/dL Calcium 8.8 (8.4-10.2) mg/dL Calcium panel 07/06/18 Range/Units 09:16 Calcium 8.8 (8.4-10.2) mg/dL Pituitary panel 07/06/18 Range/Units 09:16 Sodium 136 L (137-145) mmol/L Potassium 4.3 (3.5-5.1) mmol/L Chloride 103 (98-107) mmol/L Carbon Dioxide 27 (22-30) mmol/L BUN 10 (9-20) mg/dL Creatinine 0.54 L (0.66-1.25) mg/dL Glucose 208 H (74-99) mg/dL Calcium 8.8 (8.4-10.2) mg/dL Adrenal panel 07/06/18 Range/Units 09:16 Sodium 136 L (137-145) mmol/L Potassium 4.3 (3.5-5.1) mmol/L Chloride 103 (98-107) mmol/L Carbon Dioxide 27 (22-30) mmol/L BUN 10 (9-20) mg/dL Creatinine 0.54 L (0.66-1.25) mg/dL Glucose 208 H (74-99) mg/dL Calcium 8.8 (8.4-10.2) mg/dL Assessment and Plan Assessment: Infected sebaceous cyst back. We'll perform incision and drainage of abscess.
[2018-07-05 11:38] LABS: Glucose,Whole Blood 261 mg/dL (75-99)
--- NOTE | 2018-07-05 11:49 | P.PN ---
Subjective Progress Note Date: 07/05/18 Principal diagnosis: Back cellulitis and abscess Patient was seen and examined. No acute events overnight. Patient reports improvement in his back pain since starting [place]. Pain is 8-9 out of 10 in severity without [place], reduced to 4-5 out of 10 with [place]. He also complains of chills. He denies any chest pain, shortness of breath or palpitations. No nausea or vomiting. Objective - Vital Signs Vital signs: Vital Signs Temp 98.4 F 07/05/18 05:02 Pulse 76 07/05/18 05:02 Resp 18 07/05/18 05:02 BP 117/65 07/05/18 05:02 Pulse Ox 95 07/05/18 05:02 Intake & Output 07/04/18 07/05/18 07/05/18 18:59 06:59 18:59 Weight 127.958 kg Other: # Voids 1 - Exam General: [non toxic], [no distress], [appears at stated age] Derm: [warm], [dry] Head: [atraumatic], [normocephalic], [symmetric] Eyes: [EOMI], [no lid lag], [anicteric sclera] Mouth: [no lip lesion], [mucus membranes moist] Cardiovascular: [S1S2 reg], [no murmur], [positive DP pulse bilateral] Lungs: [CTA bilateral], [no rhonchi, no rales] , [no accessory muscle use] Abdominal: [soft], [ nontender to palpation], [no guarding], [no appreciable organomegaly] Ext: [no gross muscle atrophy], [no edema], [no contractures], [6 cm x 6 cm erythema and induration at the level of thoracic back] Neuro: [no focal neuro deficits] Psych: [Alert], [oriented], [appropriate affect] - Labs CBC & Chem 7: 07/05/18 08:37 07/05/18 08:37 Labs: Abnormal Lab Results - Last 24 Hours (Table) 07/04/18 07/04/18 07/04/18 Range/Units 16:39 16:39 18:18 WBC 12.8 H (3.8-10.6) k/uL Hgb (13.0-17.5) gm/dL Hct (39.0-53.0) % Neutrophils # 10.3 H (1.3-7.7) k/uL Monocytes # 1.1 H (0-1.0) k/uL Creatinine 0.60 L (0.66-1.25) mg/dL Glucose 218 H (74-99) mg/dL POC Glucose (mg/dL) 194 H (75-99) mg/dL AST 13 L (17-59) U/L 07/04/18 07/05/18 07/05/18 Range/Units 20:22 07:05 08:37 WBC (3.8-10.6) k/uL Hgb (13.0-17.5) gm/dL Hct (39.0-53.0) % Neutrophils # (1.3-7.7) k/uL Monocytes # (0-1.0) k/uL Creatinine 0.55 L (0.66-1.25) mg/dL Glucose 211 H (74-99) mg/dL POC Glucose (mg/dL) 326 H 203 H (75-99) mg/dL AST 12 L (17-59) U/L 07/05/18 07/05/18 Range/Units 08:37 10:02 WBC 10.7 H (3.8-10.6) k/uL Hgb 12.9 L (13.0-17.5) gm/dL Hct 38.7 L (39.0-53.0) % Neutrophils # 8.4 H (1.3-7.7) k/uL Monocytes # (0-1.0) k/uL Creatinine (0.66-1.25) mg/dL Glucose (74-99) mg/dL POC Glucose (mg/dL) 210 H (75-99) mg/dL AST (17-59) U/L Assessment and Plan Assessment: Assessment and Plan Sepsis Back abscess, complicated with insulin-dependent diabetes CAD status post stent Type 2 diabetes mellitus with hyperglycemia Hypertension Atrial fibrillation Initially met septic criteria. T-max 100 Fahrenheit, heart rate 104, leukocytosis of 10.7 with source of infection. Lactic acid negative. Likely secondary to back abscess/cellulitis. Plan: Continue IV antibiotics. Follow wound culture and blood cultures. Currently hemodynamically stable and does not require fluids. Complicated with hyperglycemia from diabetes. CT shows right paracentral subcutaneous abscess at T11-T12. Plan: Continue IV vancomycin and Zosyn. Tylenol as needed for fever. Pain management with [place] and Tylenol. Gen. surgery consulted, recommends I&D tomorrow. Follow ID consultation. Stable. Plan: Continue aspirin and Lipitor. Continue sotalol. [id number] glucose 261. Plan: Continue NovoLog 10 units 3 times a day. Insulin sliding scale. Levemir 10 units in the morning and 20 units at bedtime. Hypoglycemic precautions. Diabetic diet. Ensure tight glycemic control due to infection, anticipate blood glucose to increase further. BP 117/65. Plan: Continue lisinopril, sotalol. Monitor vitals, adjust medications as necessary. Stable. Plan: Continue sotalol. Xarelto held for I&D tomorrow. On heparin for DVT prophylaxis at this time. We'll resume Xarelto after surgery. Patient admitted for abscess of the back. I&D scheduled for tomorrow. Nothing by mouth after midnight. Continue IV antibiotics. General surgery and ID on consult.
[2018-07-05] MEDS: HEPARIN SODIUM,PORCINE 5,000 UNIT/ML 1 ML VIAL SQ SCH ×2 (15:12→23:14)
[2018-07-05 17:13] LABS: Glucose,Whole Blood 273 mg/dL (75-99)
[2018-07-05 20:33] LABS: Glucose,Whole Blood 261 mg/dL (75-99)
[2018-07-05] MEDS ORDERED: VANCOMYCIN TROUGH DUE 1 EACH MISC MISCELLANE ONE (23:00)
--- NOTE | 2018-07-06 00:03 | P.CONS ---
History of Present Illness - Reason for Consult Consult date: 07/05/18 Back abscess Requesting physician: Irving Rea - Chief Complaint Pain and swelling of the back x few days - History of Present Illness Patient is a 57-year-old male with a past medical history significant for skin soft tissue infection/abscess of the back area however the patient is not very clear if he to MRSA or not at that point, patient has been complaining to her persistent swelling in that area that apparently has gotten worse over the last 4 days with more swelling redness and pain which is sharp in nature and intensity of 8 out of 10 and no radiation with associated fever and chills, patient has been evaluated outpatient setting by his primary care physician has been treated with the 4 days of oral Bactrim DS however the patient did not have any improvement subsequently presenting to the ER he did have a low-grade fever tachycardia and elevated white count a CT was done which shows evidence of abscess collection in the subcutaneous tissue not extending to the spine the patient did have attempted drainage of the area but not successful surgery has been consulted for surgical drainage of the same, the patient was unable to collect some of the drainage from the area and sent it for culture this morning infectious disease was consulted for further recommendation regarding antibiotic therapy Review of Systems CONSTITUTIONAL: Positive for weakness. Fever EYES: No complaint. ENT:No complaint. RESPIRATORY: No complaint. CARDIOVASCULAR: No complaint. GENITOURINARY: No complaint. GASTROINTESTINAL: No complaint. MUSCULOSKELETAL: No complaint. INTEGUMENTARY: As per history of present illness. PSYCHOLOGICAL: No complaint. ENDOCRINE: No complaint. NEUROLOGIC: No complaint. Past Medical History Past Medical History: Atrial Fibrillation, Coronary Artery Disease (CAD), Diabetes Mellitus, Hyperlipidemia, Hypertension, Myocardial Infarction (SD) Last Myocardial Infarction Date:: unknown History of Any Multi-Drug Resistant Organisms: None Reported Past Surgical History: Heart Catheterization With Stent, Hernia Repair, Joint Replacement Past Anesthesia/Blood Transfusion Reactions: Previous Problems w/ Anesthesia Additional Past Anesthesia/Blood Transfusion Reaction / Comm: reports he has a hard time becoming reoriented and alert Date of Last Stent Placement:: unknown Past Psychological History: No Psychological Hx Reported Smoking Status: Never smoker Past Alcohol Use History: None Reported Past Drug Use History: None Reported Medications and Allergies Home Medications Medication Instructions Recorded Confirmed Type Aspirin EC [Ecotrin Low Dose] 81 mg PO DAILY 03/26/18 07/04/18 History Atorvastatin [Lipitor] 40 mg PO DAILY 03/26/18 07/04/18 History Cholecalciferol [Vitamin D3] 5,000 unit PO BID 03/26/18 07/04/18 History INSULIN LISPRO (HumaLOG) [HumaLOG] 10 units SQ AC-TID 03/26/18 07/04/18 History Insulin Glargine,Hum.rec.anlog 10 units SQ DAILY 03/26/18 07/04/18 History [Toujeo Solostar] Insulin Glargine,Hum.rec.anlog 20 units SQ HS 03/26/18 07/04/18 History [Toujeo Solostar] Liraglutide [Victoza 2-Derrick] 1.2 mg SQ DAILY 03/26/18 07/04/18 History Lisinopril [Zestril] 5 mg PO DAILY 03/26/18 07/04/18 History [place]-3 Fatty Acids [[place]-3] 1,000 mg PO DAILY 03/26/18 07/04/18 History Rivaroxaban [Xarelto] 20 mg PO DAILY 03/26/18 07/04/18 History Sotalol [Betapace] 120 mg PO BID 03/26/18 07/04/18 History metFORMIN HCL [Glucophage] 1,000 mg PO BID 03/26/18 07/04/18 History Potassium Chloride ER [K-Dur 10] 10 meq PO DAILY 07/04/18 07/04/18 History Sulfamethox-Tmp 800-160Mg [Bactrim 1 tab PO Q12HR 07/04/18 07/04/18 History DS 800-160 mg] Tiotropium 18 Mcg/Puff [Spiriva] 1 puff INHALATION RT-DAILY 07/04/18 07/04/18 History Allergies Allergy/AdvReac Type Severity Reaction Status Date / Time Iodinated Contrast- Oral and Allergy Rash/Hives Verified 07/04/18 13:13 IV Dye Physical Exam Vitals: Vital Signs Temp Pulse Pulse Resp BP BP Pulse Ox 07/05/18 05:02 98.4 F 76 18 117/65 95 07/04/18 21:02 98 F 104 H 20 108/65 94 L 07/04/18 18:20 99.8 F H 88 18 123/61 93 L 07/04/18 18:00 100.0 F H 87 19 126/61 93 L 07/04/18 12:39 98.7 F 86 18 122/75 97 Intake and Output 07/04/18 07/05/18 07/05/18 22:59 06:59 14:59 Other: # Voids 1 1 GENERAL DESCRIPTION: Middle-aged male lying in bed, no distress. No tachypnea or accessory muscle of respiration use. HEENT: Shows Pallor , no scleral icterus. Oral mucous membrane is dry. No pharyngeal erythema or thrush NECK: Trachea central, no thyromegaly. LUNGS: Unlabored breathing. Clear to auscultation anteriorly. No wheeze or crackle. HEART: S1, S2, regular rate and rhythm. No loud murmur ABDOMEN: Soft, no tenderness , guarding or rigidity, no organomegaly EXTREMITIES: No edema of feet. SKIN: Lower back area with an area of swelling and induration slightly fluctuant with minimal purulent drainage warm to touch NEUROLOGICAL: The patient is awake, alert, oriented x3, mood and affect normal. Results CBC & Chem 7: 07/05/18 08:37 07/05/18 08:37 Labs: Abnormal Lab Results - Last 24 Hours (Table) 07/04/18 07/04/18 07/04/18 Range/Units 16:39 16:39 18:18 WBC 12.8 H (3.8-10.6) k/uL Hgb (13.0-17.5) gm/dL Hct (39.0-53.0) % Neutrophils # 10.3 H (1.3-7.7) k/uL Monocytes # 1.1 H (0-1.0) k/uL Creatinine 0.60 L (0.66-1.25) mg/dL Glucose 218 H (74-99) mg/dL POC Glucose (mg/dL) 194 H (75-99) mg/dL AST 13 L (17-59) U/L 07/04/18 07/05/18 07/05/18 Range/Units 20:22 07:05 08:37 WBC (3.8-10.6) k/uL Hgb (13.0-17.5) gm/dL Hct (39.0-53.0) % Neutrophils # (1.3-7.7) k/uL Monocytes # (0-1.0) k/uL Creatinine 0.55 L (0.66-1.25) mg/dL Glucose 211 H (74-99) mg/dL POC Glucose (mg/dL) 326 H 203 H (75-99) mg/dL AST 12 L (17-59) U/L 07/05/18 07/05/18 Range/Units 08:37 10:02 WBC 10.7 H (3.8-10.6) k/uL Hgb 12.9 L (13.0-17.5) gm/dL Hct 38.7 L (39.0-53.0) % Neutrophils # 8.4 H (1.3-7.7) k/uL Monocytes # (0-1.0) k/uL Creatinine (0.66-1.25) mg/dL Glucose (74-99) mg/dL POC Glucose (mg/dL) 210 H (75-99) mg/dL AST (17-59) U/L Assessment and Plan Assessment: 1-patient admitted to hospital with sepsis in this patient who did have a fever tachycardia and elevated white count source is posterior back abscess likely staphylococcal infection with a question of possible community associated MRSA the symptoms have failed outpatient oral Bactrim DS therapy (1) Back abscess Current Visit: Yes Status: Acute Code(s): L02.212 - CUTANEOUS ABSCESS OF BACK [ANY PART, EXCEPT BUTTOCK] SNOMED Code(s): 593550946 (2) Sepsis Current Visit: Yes Status: Acute Code(s): A41.9 - SEPSIS, UNSPECIFIED ORGANISM SNOMED Code(s): 63401768 Plan: 1-await surgical drainage of this abscess at which time deep culture should be obtained 2-vancomycin pharmacy to dose target trough of 15 while watching his kidney function and Vanco trough closely 3-IV fluids We will follow-up on clinical condition and cultures to further adjust medication if needed Thank you for this consultation will follow this patient along with you Time with Patient: Greater than 30
[2018-07-06] MEDS ORDERED: MORPHINE SULFATE 2 MG/ML SYRINGE IVP STA (00:26)
[2018-07-06] MEDS: HYDROcodone/APAP 5-325MG 1 EACH TAB PO PRN ×4 (04:26→21:48)
[2018-07-06] MEDS ORDERED: SCOPOLAMINE 1.5MG/72HR PATCH TRANSDERM ONE (04:36)
[2018-07-06] MEDS ORDERED: LIDOCAINE 1% 20 ML VIAL (10MG/ML) FOR IV START INTRADERMA PRN (04:36)
[2018-07-06] MEDS ORDERED: MIDAZOLAM 2 MG/2 ML VIAL IV PRN (06:00)
[2018-07-06] MEDS ORDERED: DEXAMETHASONE SOD PHOSPHATE 10 MG/ML 1 ML VIAL IV ONE (06:00)
[2018-07-06] MEDS ORDERED: HYDROmorphone 0.5 MG/0.5 ML SYRINGE IVP PRN (06:00)
[2018-07-06] MEDS: INSULIN ASPART (NovoLOG) 100 UNIT/ML VIAL SQ SCH ×7 (07:34→21:42)
[2018-07-06] MEDS: HEPARIN SODIUM,PORCINE 5,000 UNIT/ML 1 ML VIAL SQ SCH ×3 (07:38→23:42)
[2018-07-06] MEDS: Liraglutide [Victoza 2-Pak] 1.2 MG SQ SCH (07:39)
[2018-07-06] MEDS: FATTY ACIDS PO SCH (07:39)
[2018-07-06] MEDS: OMEGA PO SCH (07:39)
[2018-07-06] MEDS: INSULIN DETEMIR (LEVEMIR) 100 UNIT/ML SYR SQ SCH ×2 (07:39→21:42)
[2018-07-06 07:40] LABS: Glucose,Whole Blood 201 mg/dL (75-99)
[2018-07-06] MEDS: ASPIRIN 81 MG PO SCH (07:41)
[2018-07-06] MEDS: LISINOPRIL 5 MG TAB PO SCH (07:50)
[2018-07-06] MEDS: POTASSIUM CHLORIDE ER 10 MEQ TAB.ER.PRT PO SCH (07:50)
[2018-07-06] MEDS: ATORVASTATIN 40 MG TAB PO SCH (07:50)
[2018-07-06] MEDS: CHOLECALCIFEROL 1,000 UNIT TAB PO SCH ×2 (07:51→21:42)
[2018-07-06] MEDS: SOTALOL 120 MG TAB PO SCH ×2 (07:51→21:44)
[2018-07-06] MEDS ORDERED: IPRATROPIUM 0.5 MG/2.5 ML NEBU INHALATION PRN (07:52)
[2018-07-06] MEDS: VANCOMYCIN 2,000 MG in SODIUM CHLORIDE 0.9% 500 ML 500 ML IVPB SCH ×3 (08:20→23:42)
[2018-07-06] MEDS: PIPERACILLIN-TAZOBACTAM 3.375 GM in SODIUM CHLORIDE 0.9% 100 ML IVPB SCH ×3 (08:20→23:42)
--- NOTE | 2018-07-06 09:59 | P.PN ---
Subjective Progress Note Date: 07/06/18 Principal diagnosis: Back abscess Patient was examined. No acute events overnight. Patient reports improvement in his back pain, well-controlled with [place]. He received morphine overnight. Scheduled for I&D today. No fever or chills. No nausea or vomiting. Patient denies chest pain, shortness of breath or palpitations. Objective - Vital Signs Vital signs: Vital Signs Temp 98.0 F 07/06/18 05:30 Pulse 77 07/06/18 05:30 Resp 18 07/06/18 05:30 BP 125/65 07/06/18 05:30 Pulse Ox 98 07/06/18 05:30 Intake & Output 07/05/18 07/06/18 07/06/18 18:59 06:59 18:59 Intake Total 1180 Balance 1180 Intake: Oral 1180 Other: # Voids 2 2 - Exam General: [non toxic], [no distress], [appears at stated age] Derm: [warm], [dry] Head: [atraumatic], [normocephalic], [symmetric] Eyes: [EOMI], [no lid lag], [anicteric sclera] Mouth: [no lip lesion], [mucus membranes moist] Cardiovascular: [S1S2 reg], [no murmur], [positive DP pulse bilateral] Lungs: [CTA bilateral], [no rhonchi, no rales] , [no accessory muscle use] Abdominal: [soft], [ nontender to palpation], [no guarding], [no appreciable organomegaly] Ext: [no gross muscle atrophy], [no edema], [no contractures], [6 cm x 6 cm erythema and induration at the level of thoracic back] Neuro: [no focal neuro deficits] Psych: [Alert], [oriented], [appropriate affect] - Labs CBC & Chem 7: 07/05/18 08:37 07/05/18 08:37 Labs: Abnormal Lab Results - Last 24 Hours (Table) 07/05/18 07/05/18 07/05/18 Range/Units 10:02 11:35 17:11 POC Glucose (mg/dL) 210 H 261 H 273 H (75-99) mg/dL 07/05/18 07/06/18 Range/Units 20:31 07:22 POC Glucose (mg/dL) 261 H 201 H (75-99) mg/dL Microbiology - Last 24 Hours (Table) 07/05/18 10:00 Gram Stain - Preliminary Back Wound Culture - Preliminary 07/05/18 10:00 Anaerobic Culture - Preliminary Back Assessment and Plan Assessment: Assessment and Plan Sepsis Back abscess, complicated with insulin-dependent diabetes CAD status post stent Type 2 diabetes mellitus with hyperglycemia Hypertension Atrial fibrillation Initially met septic criteria. T-max 100 Fahrenheit, heart rate 104, leukocytosis of 10.7 with source of infection. Lactic acid negative. Likely secondary to back abscess/cellulitis. Plan: Continue IV antibiotics. Follow wound culture and blood cultures. Currently hemodynamically stable and does not require fluids. Complicated with hyperglycemia from diabetes. CT shows right paracentral subcu taneous abscess at T11-T12. Plan: Continue IV vancomycin and Zosyn. Tylenol as needed for fever. Pain management with [place] and Tylenol. Gen. surgery consulted, recommends I&D today. Follow ID consultation. Stable. Plan: Continue aspirin and Lipitor. Continue sotalol. [id number] glucose 201. Plan: Continue NovoLog 10 units 3 times a day. Insulin sliding scale. Levemir 10 units in the morning and 20 units at bedtime. Hypoglycemic precautions. Diabetic diet. Ensure tight glycemic control due to infection, anticipate blood glucose to increase further. BP 125/65. Plan: Continue lisinopril, sotalol. Monitor vitals, adjust medications as necessary. Stable. Plan: Continue sotalol. Xarelto held for I&D today. On heparin for DVT prophylaxis at this time. We'll resume Xarelto after surgery. Patient admitted for abscess of the back. I&D scheduled for today. Continue IV antibiotics. General surgery and ID on consult. Anticipate DC in 1-2 days.
--- NOTE | 2018-07-06 10:04 | P.PN ---
<Deanna Patton Aracelis - Last Filed: 07/06/18 10:02> Subjective Progress Note Date: 07/06/18 CHIEF COMPLAINT: Abscess HISTORY OF PRESENT ILLNESS: Patient seen and examined at the bedside. Patient continues to report pain and tenderness to back abscess. Infectious diseases following. Patient remains on Zosyn and vancomycin. Xarelto is on hold. PHYSICAL EXAM: VITAL SIGNS: Reviewed. GENERAL: Well-developed in no acute distress. HEENT: No sclera icterus. Extraocular movements grossly intact. Moist buccal mucosa. Head is atraumatic, normocephalic. ABDOMEN: Soft. Nondistended. Nontender. NEUROLOGIC: Alert and oriented. Cranial nerves II through XII grossly intact. SKIN: Abscess to mid-low back with surrounding erythema measuring approximately 6cm. Tenderness present. Small pinpoint area of purulent drainage. ASSESSMENT: 1. Back abscess PLAN: 1. Nothing by mouth 2. Continue to hold Xarelto for OR today 3. Patient scheduled for I&D of abscess today with Dr. Lagos 4. Infectious disease on consult. Antibiotics per ID. Nurse practitioner note has been reviewed by physician. Signing provider agrees with the documented findings, assessment, and plan of care. Objective - Vital Signs Vital signs: Vital Signs Temp 98.0 F 07/06/18 05:30 Pulse 77 07/06/18 05:30 Resp 18 07/06/18 05:30 BP 125/65 07/06/18 05:30 Pulse Ox 98 07/06/18 05:30 Intake & Output 07/05/18 07/06/18 07/06/18 18:59 06:59 18:59 Intake Total 1180 Balance 1180 Intake: Oral 1180 Other: # Voids 2 2 - Labs CBC & Chem 7: 07/05/18 08:37 07/05/18 08:37 Labs: Abnormal Lab Results - Last 24 Hours (Table) 07/05/18 07/05/18 07/05/18 Range/Units 10:02 11:35 17:11 POC Glucose (mg/dL) 210 H 261 H 273 H (75-99) mg/dL 07/05/18 07/06/18 Range/Units 20:31 07:22 POC Glucose (mg/dL) 261 H 201 H (75-99) mg/dL Microbiology - Last 24 Hours (Table) 07/05/18 10:00 Gram Stain - Preliminary Back Wound Culture - Preliminary 07/05/18 10:00 Anaerobic Culture - Preliminary Back <Isaac Lagos - Last Filed: 07/06/18 13:10> Objective - Vital Signs Vital signs: Vital Signs Temp 99.4 F 07/06/18 12:09 Pulse 62 07/06/18 12:09 Resp 18 07/06/18 12:09 BP 118/58 07/06/18 12:09 Pulse Ox 97 07/06/18 12:09 Intake & Output 07/05/18 07/06/18 07/06/18 18:59 06:59 18:59 Intake Total 1180 Balance 1180 Intake: Oral 1180 Other: # Voids 2 2 - Labs CBC & Chem 7: 07/05/18 08:37 07/06/18 09:16 Labs: Abnormal Lab Results - Last 24 Hours (Table) 07/05/18 07/05/18 07/06/18 Range/Units 17:11 20:31 07:22 Sodium (137-145) mmol/L Creatinine (0.66-1.25) mg/dL Glucose (74-99) mg/dL POC Glucose (mg/dL) 273 H 261 H 201 H (75-99) mg/dL 07/06/18 07/06/18 Range/Units 09:16 11:34 Sodium 136 L (137-145) mmol/L Creatinine 0.54 L (0.66-1.25) mg/dL Glucose 208 H (74-99) mg/dL POC Glucose (mg/dL) 187 H (75-99) mg/dL Microbiology - Last 24 Hours (Table) 07/05/18 10:00 Gram Stain - Preliminary Back Wound Culture - Preliminary 07/05/18 10:00 Anaerobic Culture - Preliminary Back Assessment and Plan Assessment: Patient will undergo incision and drainage of abscess.
[2018-07-06 10:11] LABS: Anion Gap 6 mmol/L; Blood Urea Nitrogen 10 mg/dL (9-20); Calcium 8.8 mg/dL (8.4-10.2); Carbon Dioxide 27 mmol/L (22-30); Chloride 103 mmol/L (98-107); Glucose 208 mg/dL (74-99); Potassium 4.3 mmol/L (3.5-5.1); Sodium 136 mmol/L (137-145)
[2018-07-06 11:36] LABS: Glucose,Whole Blood 187 mg/dL (75-99)
[2018-07-06] MEDS ORDERED: LACTATED RINGERS 1,000 ML IV ONE (12:03)
[2018-07-06] MEDS ORDERED: KETAMINE 10 MG/ML 20 ML VIAL ONE (13:19)
[2018-07-06] MEDS ORDERED: PROPOFOL 10 MG/ML 20 ML VIAL IV ONE (13:19)
[2018-07-06] MEDS ORDERED: diphenhydrAMINE 50 MG/ML 1 ML VIAL ONE (13:19)
[2018-07-06] MEDS ORDERED: MIDAZOLAM 2 MG/2 ML VIAL ONE (13:19)
[2018-07-06] MEDS ORDERED: fentaNYL (PF) 50 MCG/ML 2 ML AMP ONE (13:19)
[2018-07-06] MEDS ORDERED: BUPIVACAINE (PF) 0.5% 30 ML VIAL SQ ONE (13:44)
--- NOTE | 2018-07-06 14:04 | P.OP ---
Date of Procedure: 07/06/18 Preoperative Diagnosis: Abscess of back Postoperative Diagnosis: Abscess of back Procedure(s) Performed: Incision and drainage of back abscess related to an infected sebaceous cyst Anesthesia: MAC Surgeon: Isaac Lagos Estimated Blood Loss (ml): 5 Pathology: other (Wound culture) Condition: stable Disposition: PACU Description of Procedure: The patient's placed on the operative table in the lateral position. He received IV sedation. His back was prepped and draped usual sterile fashion. The skin was anesthetized 1% local Xylocaine. A cruciate incision was made. The back abscess was entered. There was a prostate 20 mL appear fluid. The sebaceous cyst cavity wasn't entered. The sebaceous cyst was removed. The wound was then packed with wet-to-dry Kerlix. Patient top she will was sent to recovery in stable condition.
[2018-07-06] MEDS: ONDANSETRON 4 MG/2 ML VIAL IVP ONE ×2 (14:30→15:37)
[2018-07-06] MEDS ORDERED: HYDROmorphone 1 MG/ML 1 ML SYRINGE IVP PRN (15:07)
[2018-07-06] MEDS: LACTATED RINGERS 1,000 ML IV SCH ×2 (15:37→23:46)
[2018-07-06 17:16] LABS: Glucose,Whole Blood 278 mg/dL (75-99)
[2018-07-06 20:29] LABS: Glucose,Whole Blood 337 mg/dL (75-99)
[2018-07-06 20:41] VITALS: RESP 18
--- NOTE | 2018-07-06 23:07 | P.PN ---
Subjective Progress Note Date: 07/06/18 Principal diagnosis: Mid back abscess and cellulitis The patient overall fever pattern has improved however the patient continued complaining of pain to the mid back area more of a throbbing to dull aching 4-5 out of 10 and no radiation the patient denies having any chest pain shortness of breath or cough no abdominal pain and no diarrhea Objective - Vital Signs Vital signs: Vital Signs Temp 99.4 F 07/06/18 12:09 Pulse 62 07/06/18 12:09 Resp 18 07/06/18 12:09 BP 118/58 07/06/18 12:09 Pulse Ox 97 07/06/18 12:09 Intake & Output 07/05/18 07/06/18 07/06/18 18:59 06:59 18:59 Intake Total 1180 200 Balance 1180 200 Intake: IV 200 Oral 1180 Other: # Voids 2 2 - Exam GENERAL DESCRIPTION:[ Patient is awake and alert in no distress] HEENT: [Oral mucosa is dry and no pharyngeal erythema] EYES : [No pallor or scleral icterus] RESPIRATORY SYSTEM: [Unlabored breathing clear to auscultation] CARDIA VASCULAR SYSTEM: [S1-S2 regular rate and rhythm no murmur] GI: [Abdominal soft there's no tenderness no organomegaly] EXTREMITIES: [No edema feet] Mid back area did have a fluctuant mass with some purulent drainage - Labs CBC & Chem 7: 07/05/18 08:37 07/06/18 09:16 Labs: Abnormal Lab Results - Last 24 Hours (Table) 07/05/18 07/05/18 07/06/18 Range/Units 17:11 20:31 07:22 Sodium (137-145) mmol/L Creatinine (0.66-1.25) mg/dL Glucose (74-99) mg/dL POC Glucose (mg/dL) 273 H 261 H 201 H (75-99) mg/dL 07/06/18 07/06/18 Range/Units 09:16 11:34 Sodium 136 L (137-145) mmol/L Creatinine 0.54 L (0.66-1.25) mg/dL Glucose 208 H (74-99) mg/dL POC Glucose (mg/dL) 187 H (75-99) mg/dL Microbiology - Last 24 Hours (Table) 07/05/18 10:00 Gram Stain - Preliminary Back Wound Culture - Preliminary 07/05/18 10:00 Anaerobic Culture - Preliminary Back Assessment and Plan Assessment: 1-patient admitted to hospital with sepsis in this patient who did have a fever tachycardia and elevated white count source is mid back abscess likely staphylococcal infection with a question of possible community associated MRSA the symptoms have failed outpatient oral Bactrim DS therapy, for surgical drainage of the same lesion this morning (1) Back abscess Current Visit: Yes Status: Acute Code(s): L02.212 - CUTANEOUS ABSCESS OF BACK [ANY PART, EXCEPT BUTTOCK] SNOMED Code(s): 752678167 (2) Sepsis Current Visit: Yes Status: Acute Code(s): A41.9 - SEPSIS, UNSPECIFIED ORGANISM SNOMED Code(s): 12420758 Plan: 1-await surgical drainage of this abscess at which time deep culture should be obtained 2-vancomycin pharmacy to dose target trough of 15 while watching his kidney function and Vanco trough closely, adjust antibiotics further the basis of culture report Time with Patient: Less than 30
[2018-07-06] MEDS: ACETAMINOPHEN TAB 325 MG TAB PO PRN (23:51)
[2018-07-07] MEDS: HYDROcodone/APAP 5-325MG 1 EACH TAB PO PRN ×2 (05:26→08:32)
[2018-07-07 05:47] VITALS: BP 153/76; PULSE 69; TEMP 97.3
[2018-07-07 07:12] LABS: Glucose,Whole Blood 214 mg/dL (75-99)
[2018-07-07] MEDS: VANCOMYCIN 2,000 MG in SODIUM CHLORIDE 0.9% 500 ML 500 ML IVPB SCH ×2 (08:31→14:50)
[2018-07-07] MEDS: ASPIRIN 81 MG PO SCH (08:31)
[2018-07-07] MEDS: POTASSIUM CHLORIDE ER 10 MEQ TAB.ER.PRT PO SCH (08:31)
[2018-07-07] MEDS: CHOLECALCIFEROL 1,000 UNIT TAB PO SCH (08:31)
[2018-07-07] MEDS: PIPERACILLIN-TAZOBACTAM 3.375 GM in SODIUM CHLORIDE 0.9% 100 ML IVPB SCH (08:31)
[2018-07-07] MEDS: ATORVASTATIN 40 MG TAB PO SCH (08:31)
[2018-07-07] MEDS: LISINOPRIL 5 MG TAB PO SCH (08:32)
[2018-07-07] MEDS: INSULIN ASPART (NovoLOG) 100 UNIT/ML VIAL SQ SCH ×4 (08:32→12:20)
[2018-07-07] MEDS: HEPARIN SODIUM,PORCINE 5,000 UNIT/ML 1 ML VIAL SQ SCH ×2 (08:32→14:50)
[2018-07-07] MEDS: SOTALOL 120 MG TAB PO SCH (08:34)
[2018-07-07] MEDS: INSULIN DETEMIR (LEVEMIR) 100 UNIT/ML SYR SQ SCH (08:37)
[2018-07-07 09:26] LABS: Anion Gap 7 mmol/L; Blood Urea Nitrogen 8 mg/dL (9-20); Calcium 8.9 mg/dL (8.4-10.2); Carbon Dioxide 31 mmol/L (22-30); Chloride 101 mmol/L (98-107); Glucose 267 mg/dL (74-99); Potassium 4.7 mmol/L (3.5-5.1); Sodium 139 mmol/L (137-145)
--- NOTE | 2018-07-07 11:37 | P.PN ---
Subjective Progress Note Date: 07/07/18 CHIEF COMPLAINT: Abscess HISTORY OF PRESENT ILLNESS: Patient examined at the bedside. Patients pain is tolerable. He is s/p I&D and removal of sebaceous cyst. PHYSICAL EXAM: VITAL SIGNS: Reviewed. GENERAL: Well-developed in no acute distress. HEENT: No sclera icterus. Extraocular movements grossly intact. Moist buccal mucosa. Head is atraumatic, normocephalic. ABDOMEN: Soft. Nondistended. Nontender. NEUROLOGIC: Alert and oriented. Cranial nerves II through XII grossly intact. SKIN: Dressing to patients back clean dry intact. ASSESSMENT: 1. Back abscess, s/p I&D and removal of sebaceous cyst PLAN: 1. Continue current diet 2. Antibiotics per ID 3. Continue wet to dry dressings 4. May resume Xarelto-will defer to primary care 5. Discharge per medicine Nurse practitioner note has been reviewed by physician. Signing provider agrees with the documented findings, assessment, and plan of care. Objective - Vital Signs Vital signs: Vital Signs Temp 97.3 F L 07/07/18 05:00 Pulse 69 07/07/18 05:00 Resp 18 07/07/18 05:00 BP 153/76 07/07/18 05:00 Pulse Ox 95 07/07/18 05:00 Intake & Output 07/06/18 07/07/18 07/07/18 18:59 06:59 18:59 Intake Total 600 1680 Output Total 20 Balance 580 1680 Intake: IV 600 Intake, IV Titration 600 Amount Piperacillin-Tazobactam 3 100 .375 gm In Sodium Chloride 0.9% 100 ml @ 25 mls/hr IVPB Q8HR [facility] Rx# :[id number] Vancomycin 2,000 mg In 500 Sodium Chloride 0.9% 500 ml 500 ml @ 167 mls/hr IVPB Q8HR [facility] Rx#: [id number] Oral 1080 Output: Estimated Blood Loss 20 Other: Voiding Method Toilet # Voids 1 3 # Bowel Movements 1 - Labs CBC & Chem 7: 07/05/18 08:37 07/07/18 08:15 Labs: Abnormal Lab Results - Last 24 Hours (Table) 07/06/18 07/06/18 07/06/18 Range/Units 11:34 17:11 20:28 Carbon Dioxide (22-30) mmol/L BUN (9-20) mg/dL Creatinine (0.66-1.25) mg/dL Glucose (74-99) mg/dL POC Glucose (mg/dL) 187 H 278 H 337 H (75-99) mg/dL 07/07/18 07/07/18 Range/Units 07:11 08:15 Carbon Dioxide 31 H (22-30) mmol/L BUN 8 L (9-20) mg/dL Creatinine 0.60 L (0.66-1.25) mg/dL Glucose 267 H (74-99) mg/dL POC Glucose (mg/dL) 214 H (75-99) mg/dL Microbiology - Last 24 Hours (Table) 07/05/18 10:00 Gram Stain - Final Back Wound Culture - Final 07/06/18 13:50 Gram Stain - Preliminary Back Wound Culture - Preliminary 07/06/18 13:50 Anaerobic Culture - Preliminary Back 07/05/18 12:50 Blood Culture - Preliminary Blood No Growth after 24 hours
[2018-07-07] MEDS ORDERED: ALPRAZolam 1 MG TAB PO PRN (11:53)
[2018-07-07] MEDS ORDERED: MORPHINE SULFATE 2 MG/ML SYRINGE IVP PRN (11:53)
--- NOTE | 2018-07-07 11:53 | P.PN ---
Subjective Progress Note Date: 07/07/18 Principal diagnosis: Back abscess Patient was seen and examined. No acute events overnight. I did perform this morning. Patient complains of difficulty sleeping over the last 2 days. Otherwise, he reports improvement in his pain. He denies any chest pain, shortness breath or palpitations. No fever or chills. No nausea or vomiting. Eagerly looking to go home. Objective - Vital Signs Vital signs: Vital Signs Temp 97.3 F L 07/07/18 05:00 Pulse 69 07/07/18 05:00 Resp 18 07/07/18 05:00 BP 153/76 07/07/18 05:00 Pulse Ox 95 07/07/18 05:00 Intake & Output 07/06/18 07/07/18 07/07/18 18:59 06:59 18:59 Intake Total 600 1680 Output Total 20 Balance 580 1680 Intake: IV 600 Intake, IV Titration 600 Amount Piperacillin-Tazobactam 3 100 .375 gm In Sodium Chloride 0.9% 100 ml @ 25 mls/hr IVPB Q8HR [facility] Rx# :[id number] Vancomycin 2,000 mg In 500 Sodium Chloride 0.9% 500 ml 500 ml @ 167 mls/hr IVPB Q8HR [facility] Rx#: [id number] Oral 1080 Output: Estimated Blood Loss 20 Other: Voiding Method Toilet # Voids 1 3 # Bowel Movements 1 - Exam General: [non toxic], [no distress], [appears at stated age] Derm: [warm], [dry] Head: [atraumatic], [normocephalic], [symmetric] Eyes: [EOMI], [no lid lag], [anicteric sclera] Mouth: [no lip lesion], [mucus membranes moist] Ext: [no gross muscle atrophy], [no edema], [no contractures], [dressing applied, clean dry and intact] Neuro: [no focal neuro deficits] Psych: [Alert], [oriented], [appropriate affect] - Labs CBC & Chem 7: 07/05/18 08:37 07/07/18 08:15 Labs: Abnormal Lab Results - Last 24 Hours (Table) 07/06/18 07/06/18 07/07/18 Range/Units 17:11 20:28 07:11 Carbon Dioxide (22-30) mmol/L BUN (9-20) mg/dL Creatinine (0.66-1.25) mg/dL Glucose (74-99) mg/dL POC Glucose (mg/dL) 278 H 337 H 214 H (75-99) mg/dL 07/07/18 Range/Units 08:15 Carbon Dioxide 31 H (22-30) mmol/L BUN 8 L (9-20) mg/dL Creatinine 0.60 L (0.66-1.25) mg/dL Glucose 267 H (74-99) mg/dL POC Glucose (mg/dL) (75-99) mg/dL Microbiology - Last 24 Hours (Table) 07/05/18 10:00 Gram Stain - Final Back Wound Culture - Final 07/06/18 13:50 Gram Stain - Preliminary Back Wound Culture - Preliminary 07/06/18 13:50 Anaerobic Culture - Preliminary Back 07/05/18 12:50 Blood Culture - Preliminary Blood No Growth after 24 hours Assessment and Plan Assessment: Assessment and Plan Sepsis Back abscess, complicated with insulin-dependent diabetes CAD status post stent Type 2 diabetes mellitus with hyperglycemia Hypertension Atrial fibrillation Initially met septic criteria. T-max 100 Fahrenheit, heart rate 104, leukocytosis of 10.7 with source of infection. Lactic acid negative. Likely secondary to back abscess/cellulitis. Blood culture prelim negative at 24 hours. Plan: Continue IV antibiotics. Follow wound culture and blood cultures. Currently hemodynamically stable and does not require fluids. Complicated with hyperglycemia from diabetes. CT shows right paracentral subcutaneous abscess at T11-T12. Plan: DC Zosyn and continue vancomycin IV. Tylenol as needed for fever. Pain management with [place] and Tylenol. I&D performed today. Follow ID consultation. Stable. Plan: Continue aspirin and Lipitor. Continue sotalol. Rwcsb-sy-btbs glucose 214. Plan: Continue NovoLog 10 units 3 times a day. Insulin sliding scale. Levemir 10 units in the morning and 20 units at bedtime. Hypoglycemic precautions. Diabetic diet. Ensure tight glycemic control due to infection, anticipate blood glucose to increase further. BP 153/76. Plan: Continue lisinopril, sotalol. Monitor vitals, adjust medications as necessary. Stable. Plan: Continue sotalol. Continue Xarelto. On heparin for DVT prophylaxis at this time. Patient admitted for abscess of the back. Possible plans for wound VAC and/or midline for IV antibiotics. Will discuss with surgery and ID. Cultures are pending. Likely DC tomorrow.
[2018-07-07 11:54] LABS: Glucose,Whole Blood 237 mg/dL (75-99)
--- NOTE | 2018-07-07 12:48 | P.DS ---
Providers Date of admission: 07/04/18 17:10 Expected date of discharge: 07/07/18 Attending physician: Bruna Geiger MD Consults: 07/04/18 17:08 Consult Physician Routine Consulting Provider: Marcie Street Consult Reason/Comments: ID Do you want consulting provider notified?: Yes Consult Physician Urgent Consulting Provider: Isaac Lagos Consult Reason/Comments: ac Do you want consulting provider notified?: Yes Primary care physician: Daniel Monae Hospital Course: 57-year-old obese male with a past medical history of type 2 diabetes, currently artery disease with stenting 2, essential hypertension, dyslipidemia and paroxysmal A. fib currently on anticoagulation with Xarelto who presents to the ER with chief complaint of back abscess it's not getting better. Apparently the patient reports previously having a cyst on his mid back that about 9-10 days ago began getting more and more swollen and erythematous and more painful. The patient reports a 9-10 constant sharp pain in that area, he reports subjective fevers chills and night sweats during this time. Patient sought treatment from his primary care provider and was placed on Bactrim this past , since then the patient denies any improvement Of the abscess, he denies any pus when he attempts to express the abscess. The patient denies any other complaints of chest pain shortness of breath nausea vomiting or abdominal pain. In the ER the patient had a comprehensive workup, CT abdomen suggested a right paracentral subcutaneous abscess at T 11/12 measuring approximately 5.34.56.2 cm. The patient was noted to have a low-grade temperature 100.0, he was normotensive. Notable labs include a WBC count of 12.8, with a serum blood sugar of 218. The patient was started on vancomycin and Rocephin recommended for admission. Patient initially met septic criteria with a T-max of 100 Fahrenheit, heart rate of 104, leukocytosis of 10.7 with a source of infection. Lactic acid was n egative. Blood cultures were prelim negative at 24 hours at the time of discharge. Wound cultures and final blood cultures are pending at the time of discharge. Patient underwent incision and drainage of his back abscess on 07/07/2018. Infectious disease was consulted and patient was initially started on Zosyn and vancomycin IV. Otherwise, his home medications were resumed for hypertension, atrial fibrillation and type 2 diabetes mellitus. Case was discussed with Dr. Schneider. Decision was made with surgery and infectious disease to discharge patient home on oral Bactrim to follow-up in the outpatient setting. This complex discharge took greater than 30 minutes. Sepsis Back abscess, complicated with insulin-dependent diabetes CAD status post stent Type 2 diabetes mellitus with hyperglycemia Hypertension Atrial fibrillation Pertinent Studies: CT abdomen Procedures: Incision and drainage Patient Condition at Discharge: Stable Plan - Discharge Summary Discharge Rx Participant: No New Discharge Prescriptions: Continue Liraglutide [Victoza 2-Derrick] 1.2 mg SQ DAILY metFORMIN HCL [Glucophage] 1,000 mg PO BID [place]oldt-3 Fatty Acids [[place]-3] 1,000 mg PO DAILY INSULIN LISPRO (HumaLOG) [humaLOG] 10 units SQ AC-TID Cholecalciferol [Vitamin D3 (25 Mcg = 1000 Iu)] 5,000 unit PO BID Aspirin EC [Ecotrin Low Dose] 81 mg PO DAILY Lisinopril [Zestril] 5 mg PO DAILY Insulin Glargine,Hum.rec.anlog [Toujeo Solostar] 10 units SQ DAILY Insulin Glargine,Hum.rec.anlog [Toujeo Solostar] 20 units SQ HS Atorvastatin [Lipitor] 40 mg PO DAILY Sotalol [Betapace] 120 mg PO BID Rivaroxaban [Xarelto] 20 mg PO DAILY Tiotropium 18 Mcg/Puff [Spiriva] 1 puff INHALATION RT-DAILY Potassium Chloride ER [K-Dur 10] 10 meq PO DAILY Sulfamethox-Tmp 800-160Mg [Bactrim DS 800-160 mg] 1 tab PO Q12HR #20 tab Discharge Medication List Aspirin EC [Ecotrin Low Dose] 81 mg PO DAILY 03/26/18 [History] Atorvastatin [Lipitor] 40 mg PO DAILY 03/26/18 [History] Cholecalciferol [Vitamin D3 (25 Mcg = 1000 Iu)] 5,000 unit PO BID 03/26/18 [History] INSULIN LISPRO (HumaLOG) [humaLOG] 10 units SQ AC-TID 03/26/18 [History] Insulin Glargine,Hum.rec.anlog [Toujeo Solostar] 10 units SQ DAILY 03/26/18 [History] Insulin Glargine,Hum.rec.anlog [Toujeo Solostar] 20 units SQ HS 03/26/18 [History] Liraglutide [Victoza 2-Derrick] 1.2 mg SQ DAILY 03/26/18 [History] Lisinopril [Zestril] 5 mg PO DAILY 03/26/18 [History] H[place]t-3 Fatty Acids [[place]-3] 1,000 mg PO DAILY 03/26/18 [History] Rivaroxaban [Xarelto] 20 mg PO DAILY 03/26/18 [History] Sotalol [Betapace] 120 mg PO BID 03/26/18 [History] metFORMIN HCL [Glucophage] 1,000 mg PO BID 03/26/18 [History] Potassium Chloride ER [K-Dur 10] 10 meq PO DAILY 07/04/18 [History] Tiotropium 18 Mcg/Puff [Spiriva] 1 puff INHALATION RT-DAILY 07/04/18 [History] Sulfamethox-Tmp 800-160Mg [Bactrim DS 800-160 mg] 1 tab PO Q12HR #20 tab 07/07/18 [Rx] Follow up Appointment(s)/Referral(s): Nonstaff,Physician [REFERRING] - 1-2 days Isaac Lagos MD [STAFF PHYSICIAN] - [address] MD [STAFF PHYSICIAN] - 1 Week Activity/Diet/Wound Care/Special Instructions: call [phone] to make an appointment to see Dr street in the wound care center next week Wet to dry dressings daily to back abscess Take all medications as advised. Discharge Disposition: HOME SELF-CARE
[2018-07-07 19:38] LABS: LD Isoenzymes 1 27 % (19-38); LD Isoenzymes 2 36 % (30-43); LD Isoenzymes 3 22 % (16-26); LD Isoenzymes 4 7 % (3-12); LD Isoenzymes 5 8 % (3-14); Lactacte Dehydrogenase(LD) ISO 152 U/L (120-250)
[2018-07-07] MEDS ORDERED: ZOLPIDEM 5 MG TAB PO PRN (21:00)
--- NOTE | 2018-07-07 21:56 | P.PN ---
Subjective Progress Note Date: 07/07/18 Principal diagnosis: Mid back abscess and cellulitis The patient is status post drainage of the mid back abscess, the patient currently denies having worsening pain to the back wound area, patient denies any fever or chills denies any chest pain shortness of breath or cough no a bdominal pain and no diarrhea Objective - Vital Signs Vital signs: Vital Signs Temp 97.3 F L 07/07/18 05:00 Pulse 69 07/07/18 05:00 Resp 18 07/07/18 05:00 BP 153/76 07/07/18 05:00 Pulse Ox 95 07/07/18 05:00 Intake & Output 07/06/18 07/07/18 07/07/18 18:59 06:59 18:59 Intake Total 600 1680 Output Total 20 Balance 580 1680 Intake: IV 600 Intake, IV Titration 600 Amount Piperacillin-Tazobactam 3 100 .375 gm In Sodium Chloride 0.9% 100 ml @ 25 mls/hr IVPB Q8HR [facility] Rx# :[id number] Vancomycin 2,000 mg In 500 Sodium Chloride 0.9% 500 ml 500 ml @ 167 mls/hr IVPB Q8HR [facility] Rx#: [id number] Oral 1080 Output: Estimated Blood Loss 20 Other: Voiding Method Toilet # Voids 1 3 # Bowel Movements 1 - Exam GENERAL DESCRIPTION:[ Patient is awake and alert in no distress] HEENT: [Oral mucosa is dry and no pharyngeal erythema] EYES : [No pallor or scleral icterus] RESPIRATORY SYSTEM: [Unlabored breathing clear to auscultation] CARDIA VASCULAR SYSTEM: [S1-S2 regular rate and rhythm no murmur] GI: [Abdominal soft there's no tenderness no organomegaly] EXTREMITIES: [No edema feet] Mid back area wound is currently packed with some blood stained drainage - Labs CBC & Chem 7: 07/05/18 08:37 07/07/18 08:15 Labs: Abnormal Lab Results - Last 24 Hours (Table) 07/06/18 07/06/18 07/06/18 Range/Units 11:34 17:11 20:28 Carbon Dioxide (22-30) mmol/L BUN (9-20) mg/dL Creatinine (0.66-1.25) mg/dL Glucose (74-99) mg/dL POC Glucose (mg/dL) 187 H 278 H 337 H (75-99) mg/dL 07/07/18 07/07/18 Range/Units 07:11 08:15 Carbon Dioxide 31 H (22-30) mmol/L BUN 8 L (9-20) mg/dL Creatinine 0.60 L (0.66-1.25) mg/dL Glucose 267 H (74-99) mg/dL POC Glucose (mg/dL) 214 H (75-99) mg/dL Microbiology - Last 24 Hours (Table) 07/05/18 10:00 Gram Stain - Final Back Wound Culture - Final 07/06/18 13:50 Gram Stain - Preliminary Back Wound Culture - Preliminary 07/06/18 13:50 Anaerobic Culture - Preliminary Back 07/05/18 12:50 Blood Culture - Preliminary Blood No Growth after 24 hours Assessment and Plan Assessment: 1-patient admitted to hospital with sepsis in this patient who did have a fever tachycardia and elevated white count source is mid back abscess status post drainage of the abscess culture currently pending however surgeon insisting that the patient getting discharged today on oral antibiotics (1) Back abscess Status: Acute Code(s): L02.212 - CUTANEOUS ABSCESS OF BACK [ANY PART, EXCEPT BUTTOCK] SNOMED Code(s): 783246654 (2) Sepsis Status: Acute Code(s): A41.9 - SEPSIS, UNSPECIFIED ORGANISM SNOMED Code(s): 61466962 Plan: 1-patient antibiotics will be transitioned to Bactrim DS one twice a day for 10 days for local wound care with wet-to-dry packing for now till the patient is evaluated in the wound care center next week Time with Patient: Less than 30
[2018-07-08] MEDS ORDERED: VANCOMYCIN TROUGH DUE 1 EACH MISC MISCELLANE ONE (07:00)
[2018-07-08 10:58] LABS: Glucose,Whole Blood 157 mg/dL (75-99)
== END 2018-07-07 15:36 | disposition home or self-care (01) | DRG 854 ==
LOC: EC 12:21 → 3NMEDONC 17:09 → OBSVTOIN 17:10 → 3NMEDONC 17:46
PROVIDERS: ADMIT Internal Medicine; ATTEND Internal Medicine
PROC: 0HB6XZZ Excision of Back Skin, External Approach (ICD-10-PCS; 2018-07-06)
PROC: 0J970ZZ Drainage of Back Subcutaneous Tissue and Fascia, Open Approach (ICD-10-PCS; principal; 2018-07-06 14:45)
DX: A41.2 Sepsis due to unspecified staphylococcus (principal); L02.212 Cutaneous abscess of back [any part, except buttock and flank]; Z68.41 Body mass index [BMI] 40.0-44.9, adult; E11.59 Type 2 diabetes mellitus with other circulatory complications; E11.65 Type 2 diabetes mellitus with hyperglycemia; I48.0 Paroxysmal atrial fibrillation; I25.10 Atherosclerotic heart disease of native coronary artery without angina pectoris; I10 Essential (primary) hypertension; E78.5 Hyperlipidemia, unspecified; E66.9 Obesity, unspecified; L72.3 Sebaceous cyst; I25.2 Old myocardial infarction; Z79.82 Long term (current) use of aspirin; Z79.899 Other long term (current) drug therapy; Z79.4 Long term (current) use of insulin; Z79.01 Long term (current) use of anticoagulants; Z95.5 Presence of coronary angioplasty implant and graft; Z91.041 Radiographic dye allergy status
CPT/HCPCS: 10060; 36415; 74150; 80048; 80053; 80202; 83605; 83625; 85025; 87040; 87070; 87075; 87205; 96365; 96375; 99284

== ENCOUNTER 2018-07-13 19:55 | Emergency (ER) | payer BC ==
[2018-07-13 21:01] LABS: Basophils % (A) 0 %; Eosinophils # (A) 0.1 k/uL (0-0.7); Eosinophils % (A) 1 %; HCT 42.2 % (39.0-53.0); HGB 14.3 gm/dL (13.0-17.5); Lymphocytes % (A) 17 %; MCH 30.3 pg (25.0-35.0); MCHC 33.8 g/dL (31.0-37.0); MCV 89.7 fL (80.0-100.0); Mean Platelet Volume 7.5; Monocytes # (A) 0.7 k/uL (0-1.0); Monocytes % (A) 6 %; Neutrophils # (A) 8.4 k/uL (1.3-7.7); Neutrophils % (A) 73 %; Platelet Count 269 k/uL (150-450); RBC 4.71 m/uL (4.30-5.90); RDW 13.3 % (11.5-15.5); WBC 11.5 k/uL (3.8-10.6)
[2018-07-13] MEDS ORDERED: SODIUM CHLORIDE 0.9% 1,000 ML IV ONE (21:04)
[2018-07-13] MEDS ORDERED: METOPROLOL TARTRATE 5 MG/5 ML VIAL IVP STA (21:04)
[2018-07-13 21:09] LABS: ALT 58 U/L (21-72); AST 31 U/L (17-59); Albumin 4.2 g/dL (3.5-5.0); Alkaline Phosphatase 67 U/L (38-126); Anion Gap 10 mmol/L; Blood Urea Nitrogen 15 mg/dL (9-20); Carbon Dioxide 23 mmol/L (22-30); Chloride 105 mmol/L (98-107); Glucose 250 mg/dL (74-99); Potassium 4.3 mmol/L (3.5-5.1); Sodium 138 mmol/L (137-145); Total Bilirubin 0.6 mg/dL (0.2-1.3); Total Protein 7.2 g/dL (6.3-8.2)
[2018-07-13 21:22] LABS: Creatine Kinase 78 U/L (55-170)
--- NOTE | 2018-07-13 21:23 | XR ---
EXAMINATION TYPE: XR chest 2V DATE OF EXAM: 07/13/2018 COMPARISON: 03/26/2018 HISTORY: Chest pressure TECHNIQUE: Frontal and lateral views of the chest are obtained. FINDINGS: Heart and mediastinum are normal. Lungs are clear of consolidation. There is no pleural ef fusion. There are chest leads. Bony thorax is intact. IMPRESSION: No active cardiopulmonary disease. No change.
[2018-07-13 21:35] LABS: Creatine Kinase MB 1.2 ng/mL (0.0-2.4); Troponin I <0.012 ng/mL (0.000-0.034)
--- NOTE | 2018-07-13 21:53 | ED ---
Arrhythmia/Palpitations HPI - General Chief Complaint: Arrhythmia/Palpitations Stated Complaint: Chest Pain Time Seen by Provider: 07/13/18 20:13 Source: patient Mode of arrival: wheelchair Limitations: no limitations - History of Present Illness Initial Comments: Is a 57-year-old male with a history of paroxysmal atrial fibrillation on sotalol and Xarelto who presents emergent department for an episode of palpitations and chest pressure at home. He states his symptoms have now resolved. He states it felt like he went back into atrial fibrillation. Patient denies any shortness of breath, lightheadedness, diaphoresis, or nausea. The patient recently had an infected cyst removed from his back last week and was off his Trileptal for a few days however went back on about 4 days ago. He denies any fevers or chills. No lower extremity swelling or pain. No nausea, vomiting, or diarrhea. No other acute complaints. - Related Data Home Medications Medication Instructions Recorded Confirmed Aspirin EC [Ecotrin Low Dose] 81 mg PO DAILY 03/26/18 07/13/18 Atorvastatin [Lipitor] 40 mg PO DAILY 03/26/18 07/13/18 Cholecalciferol [Vitamin D3 (25 5,000 unit PO BID 03/26/18 07/13/18 Mcg = 1000 Iu)] INSULIN LISPRO (HumaLOG) [humaLOG] 10 units SQ AC-TID 03/26/18 07/13/18 Insulin Glargine,Hum.rec.anlog 10 units SQ DAILY 03/26/18 07/13/18 [Toujeo Solostar] Insulin Glargine,Hum.rec.anlog 20 units SQ HS 03/26/18 07/13/18 [Toujeo Solostar] Liraglutide [Victoza 2-Derrick] 1.2 mg SQ DAILY 03/26/18 07/13/18 Lisinopril [Zestril] 5 mg PO DAILY 03/26/18 07/13/18 Burdick-3 Fatty Acids [Burdick-3] 1,000 mg PO DAILY 03/26/18 07/13/18 Rivaroxaban [Xarelto] 20 mg PO DAILY 03/26/18 07/13/18 Sotalol [Betapace] 120 mg PO BID 03/26/18 07/13/18 metFORMIN HCL [Glucophage] 1,000 mg PO BID 03/26/18 07/13/18 Potassium Chloride ER [K-Dur 10] 10 meq PO DAILY 07/04/18 07/13/18 Tiotropium 18 Mcg/Puff [Spiriva] 1 cap INHALATION RT-DAILY 07/04/18 07/13/18 Previous Rx's Medication Instructions Recorded Sulfamethox-Tmp 800-160Mg [Bactrim 1 tab PO Q12HR #20 tab 07/07/18 DS 800-160 mg] Allergies Allergy/AdvReac Type Severity Reaction Status Date / Time Iodinated Contrast- Oral and Allergy Rash/Hives Verified 07/13/18 20:07 IV Dye Review of Systems ROS Statement: Those systems with pertinent positive or pertinent negative responses have been documented in the HPI. ROS Other: All systems not noted in ROS Statement are negative. Past Medical History Past Medical History: Atrial Fibrillation, Coronary Artery Disease (CAD), Diabetes Mellitus, Hyperlipidemia, Hypertension, Myocardial Infarction ([place]) Last Myocardial Infarction Date:: unknown History of Any Multi-Drug Resistant Organisms: None Reported Past Surgical History: Heart Catheterization With Stent, Hernia Repair, Joint Replacement Additional Past Surgical History / Comment(s): cyst removal, Past Anesthesia/Blood Transfusion Reactions: Previous Problems w/ Anesthesia Additional Past Anesthesia/Blood Transfusion Reaction / Comment(s): reports he has a hard time becoming reoriented and alert Date of Last Stent Placement:: unknown Past Psychological History: No Psychological Hx Reported Smoking Status: Former smoker Past Alcohol Use History: None Reported Past Drug Use History: None Reported General Exam - General Exam Comments Initial Comments: Constitutional: Awake alert Appears comfortable Head: Normocephalic atraumatic Eyes: no conjunctival injection No scleral icterus EOMI Neck: No JVD Supple Heart: Irregularly irregular rhythm normal S1-S2 no murmurs Lungs: Clear to auscultation bilaterally No wheezing No rales Abdomen: Soft nondistended nontender Extremities: Non edematous DP pulses intact Radial pulses intact Neuro: A&Ox3 No focal neurologic deficits Psych: Appropriate mood and affect Limitations: no limitations Course Vital Signs 07/13/18 07/13/18 19:57 21:00 Temperature 98.0 F Pulse Rate 104 H 94 Respiratory 18 20 Rate Blood Pressure 119/76 115/44 O2 Sat by Pulse 96 98 Oximetry EKG Findings - EKG Comments: EKG Findings:: EKG showing atrial fibrillation with a rate of 116. There is no abnormal ST segment changes or T-wave inversions. QTC is 475. Other intervals normal. No ectopy. Medical Decision Making - Medical Decision Making This is a 57-year-old male who presents emergency department for atrial fibrillation and palpitations. The patient and EKG performed that did show A. fib with RVR. The patient was given 5 mg of Lopressor with improvement in his rate to the 80s to 90s. The patient states his symptoms have completely resolved with the menstruation of Lopressor. The patient also had troponin which was negative. D-dimer was also negative. The rest was a lecture lites were unremarkable. The patient did have some mild hyperglycemia however he has on metformin and will take this when he gets home. The patient was instructed to continue with his sotalol and Zarrella toe and to return the emergency Department if he has recurring symptoms. Otherwise needs to follow-up with his custom shoemaker. - Lab Data Result diagrams: 07/13/18 20:15 07/13/18 20:15 Lab Results 07/13/18 07/13/18 07/13/18 Range/Units 20:15 20:15 20:15 WBC 11.5 H (3.8-10.6) k/uL RBC 4.71 (4.30-5.90) m/uL Hgb 14.3 (13.0-17.5) gm/dL Hct 42.2 (39.0-53.0) % MCV 89.7 (80.0-100.0) fL MCH 30.3 (25.0-35.0) pg MCHC 33.8 (31.0-37.0) g/dL RDW 13.3 (11.5-15.5) % Plt Count 269 (150-450) k/uL Neutrophils % 73 % Lymphocytes % 17 % Monocytes % 6 % Eosinophils % 1 % Basophils % 0 % Neutrophils # 8.4 H (1.3-7.7) k/uL Lymphocytes # 2.0 (1.0-4.8) k/uL Monocytes # 0.7 (0-1.0) k/uL Eosinophils # 0.1 (0-0.7) k/uL Basophils # 0.0 (0-0.2) k/uL D-Dimer (<0.60) mg/L FEU Sodium 138 (137-145) mmol/L Potassium 4.3 (3.5-5.1) mmol/L Chloride 105 (98-107) mmol/L Carbon Dioxide 23 (22-30) mmol/L Anion Gap 10 mmol/L BUN 15 (9-20) mg/dL Creatinine 0.69 (0.66-1.25) mg/dL Est GFR (CKD-EPI)AfAm >90 (>60 ml/min/1.73 sqM) Est GFR (CKD-EPI)NonAf >90 (>60 ml/min/1.73 sqM) Glucose 250 H (74-99) mg/dL Calcium 10.0 (8.4-10.2) mg/dL Total Bilirubin 0.6 (0.2-1.3) mg/dL AST 31 (17-59) U/L ALT 58 (21-72) U/L Alkaline Phosphatase 67 (38-126) U/L Total Creatine Kinase 78 (55-170) U/L CK-MB (CK-2) 1.2 (0.0-2.4) ng/mL CK-MB (CK-2) Rel Index 1.5 Troponin I <0.012 (0.000-0.034) ng/mL Total Protein 7.2 (6.3-8.2) g/dL Albumin 4.2 (3.5-5.0) g/dL 07/13/18 Range/Units 20:15 WBC (3.8-10.6) k/uL RBC (4.30-5.90) m/uL Hgb (13.0-17.5) gm/dL Hct (39.0-53.0) % MCV (80.0-100.0) fL MCH (25.0-35.0) pg MCHC (31.0-37.0) g/dL RDW (11.5-15.5) % Plt Count (150-450) k/uL Neutrophils % % Lymphocytes % % Monocytes % % Eosinophils % % Basophils % % Neutrophils # (1.3-7.7) k/uL Lymphocytes # (1.0-4.8) k/uL Monocytes # (0-1.0) k/uL Eosinophils # (0-0.7) k/uL Basophils # (0-0.2) k/uL D-Dimer 0.31 (<0.60) mg/L FEU Sodium (137-145) mmol/L Potassium (3.5-5.1) mmol/L Chloride (98-107) mmol/L Carbon Dioxide (22-30) mmol/L Anion Gap mmol/L BUN (9-20) mg/dL Creatinine (0.66-1.25) mg/dL Est GFR (CKD-EPI)AfAm (>60 ml/min/1.73 sqM) Est GFR (CKD-EPI)NonAf (>60 ml/min/1.73 sqM) Glucose (74-99) mg/dL Calcium (8.4-10.2) mg/dL Total Bilirubin (0.2-1.3) mg/dL AST (17-59) U/L ALT (21-72) U/L Alkaline Phosphatase (38-126) U/L Total Creatine Kinase (55-170) U/L CK-MB (CK-2) (0.0-2.4) ng/mL CK-MB (CK-2) Rel Index Troponin I (0.000-0.034) ng/mL Total Protein (6.3-8.2) g/dL Albumin (3.5-5.0) g/dL Disposition Clinical Impression: Atrial fibrillation Disposition: HOME SELF-CARE Condition: Stable Instructions (If sedation given, give patient instructions): A-fib (Atrial Fibrillation) (ED) Is patient prescribed a controlled substance at d/c from ED?: No Referrals: Daniel Monae DO [Primary Care Provider] - 1-2 days
[2018-07-13 21:59] VITALS: BP 123/67; PULSE 79; RESP 18; TEMP 97.7
== END 2018-07-13 21:59 | disposition home or self-care (01) ==
LOC: EC 19:55
DX: I48.0 Paroxysmal atrial fibrillation (principal); E11.65 Type 2 diabetes mellitus with hyperglycemia; I25.10 Atherosclerotic heart disease of native coronary artery without angina pectoris; E78.5 Hyperlipidemia, unspecified; I10 Essential (primary) hypertension; I25.2 Old myocardial infarction; Z95.5 Presence of coronary angioplasty implant and graft; Z96.89 Presence of other specified functional implants; Z87.891 Personal history of nicotine dependence; Z79.82 Long term (current) use of aspirin; Z79.4 Long term (current) use of insulin; Z79.01 Long term (current) use of anticoagulants; Z79.899 Other long term (current) drug therapy; Z91.041 Radiographic dye allergy status
CPT/HCPCS: 36415; 71046; 80053; 82550; 82553; 84484; 85025; 85379; 93005; 96361; 96374; 99285